=== PATIENT | female | born 1940 | race Two or more races ===

== ENCOUNTER 2023-09-13 20:11 | Inpatient (IN) | payer MEDICARE, MEDICAID ==
[~2023-09-13] VITALS: Ht 157.5 cm; Wt 49.2 kg
[2023-09-13 20:56] LABS: Basophils # (auto) 0 10 ^3/uL (0-0.2); Basophils % (auto) 0.4 % (0.0-2.0); Eosinophils # (auto) 0.4 10 ^3/uL (0-0.8); Eosinophils % (auto) 4.2 % (0.0-7.0); Hematocrit 34.8 % (36.0-46.0); Hemoglobin 11.2 g/dL (12.2-16.2); Lymphocytes # (auto) 1.2 10 ^3/uL (0.4-5.4); Lymphocytes % (auto) 11.8 % (10.0-50.0); Mean Corpuscular Hemoglobin 28.2 pg (28.0-32.0); Mean Corpuscular Hgb Conc. 32.2 g/dL (32.0-36.0); Mean Corpuscular Volume 87.6 fL (80.0-100.0); Monocytes # (auto) 0.6 10 ^3/uL (0-1.3); Neutrophils # (auto) 7.6 10 ^3/uL (1.6-8.6); Neutrophils % (auto) 77.6 % (37.0-80.0); Red Blood Cells 3.98 10^6/uL (4.0-5.20); Red Cell Distribution Width 13.7 % (11.8-14.3); White Blood Cell 9.8 10^3/uL (4.4-10.8)
[2023-09-13 21:12] LABS: Alanine Aminotransferase 32 U/L (7-40); Albumin 4.3 g/dL (3.2-4.8); Alkaline Phosphatase 77 U/L (46-116); Anion Gap 9 (5-15); Aspartate Aminotransferase 37 U/L (13-40); BUN/Creatinine Ratio 17.4 (10.0-20.0); Bilirubin, Total 0.6 mg/dL (0.2-1.0); Blood Urea Nitrogen 12 mg/dL (9-23); Calcium 9.7 mg/dL (8.7-10.4); Carbon Dioxide 24 mmol/L (20-30); Chloride 104 mmol/L (98-107); Glucose 100 mg/dL (74-106); INR 1.03 (0.9-1.15); Partial Thromboplastin Time 28.1 SEC (24.5-34.5); Prothrombin Time 10.9 sec (9.3-11.8); Sodium 137 mmol/L (136-145); Total Protein 7.6 g/dL (5.7-8.2)
[2023-09-13 22:00] VITALS: PULSE 81; RESP 16; O2SAT 99
[2023-09-13] MEDS: ONDANSETRON HCL 4 MG/2 ML VIAL IV ONE (22:08)
[2023-09-13] MEDS: MORPHINE SULFATE 4 MG/ML SYR/VIAL IV ONE (22:09)
[2023-09-13] MEDS: SODIUM CHLORIDE 0.9% 1,000 ML IV ONE ×2 (22:38→22:39)
[2023-09-13] MEDS: IOHEXOL 300 MG/ML 100ML BOTTLE IJ ONE (22:39)
[2023-09-13 23:58] LABS: Urine Bacteria FEW /hpf (None Seen); Urine Blood Negative /uL (Negative); Urine Clarity Clear (Clear); Urine Color Light-Yellow (Yellow); Urine Protein, UAD Negative (Negative); Urine Specific Gravity 1.026 (1.001-1.035); Urine Urobilinogen Normal (Negative); Urine WBC <1 /hpf (0 - 5)
[2023-09-14] VITALS (8 sets, daily range): BP systolic 122–144; BP diastolic 63–75; PULSE 77–100; RESP 18–20; TEMP 97.9–98.9; O2SAT 92–98
[2023-09-14] MEDS: SODIUM CHLORIDE 0.9% 1,000 ML IV SCH (00:30)
[2023-09-14] MEDS: HYDROcodone-ACET 5/325MG TAB PO PRN (01:39)
[2023-09-14] MEDS ORDERED: MORPHINE SULFATE INJ 2 MG/ml SYRG IV PRN (01:45)
[2023-09-14] MEDS ORDERED: NITROGLYCERIN 0.4 MG SL TAB SL PRN (01:45)
[2023-09-14 08:27] LABS: Basophils # (auto) 0 10 ^3/uL (0-0.2); Basophils % (auto) 0.4 % (0.0-2.0); Eosinophils # (auto) 0.4 10 ^3/uL (0-0.8); Eosinophils % (auto) 4.4 % (0.0-7.0); Hematocrit 32.4 % (36.0-46.0); Hemoglobin 10.5 g/dL (12.2-16.2); Lymphocytes # (auto) 1.5 10 ^3/uL (0.4-5.4); Lymphocytes % (auto) 16.3 % (10.0-50.0); Mean Corpuscular Hemoglobin 28.6 pg (28.0-32.0); Mean Corpuscular Hgb Conc. 32.4 g/dL (32.0-36.0); Mean Corpuscular Volume 88.3 fL (80.0-100.0); Monocytes # (auto) 0.7 10 ^3/uL (0-1.3); Monocytes % (auto) 8.1 % (0.0-12.0); Neutrophils # (auto) 6.4 10 ^3/uL (1.6-8.6); Neutrophils % (auto) 70.8 % (37.0-80.0); Red Blood Cells 3.66 10^6/uL (4.0-5.20); Red Cell Distribution Width 13.6 % (11.8-14.3)
[2023-09-14 08:34] LABS: Alanine Aminotransferase 30 U/L (7-40); Albumin 4.1 g/dL (3.2-4.8); Alkaline Phosphatase 76 U/L (46-116); Anion Gap 8 (5-15); Aspartate Aminotransferase 30 U/L (13-40); BUN/Creatinine Ratio 10.7 (10.0-20.0); Blood Urea Nitrogen 8 mg/dL (9-23); Calcium 9.7 mg/dL (8.5-10.1); Carbon Dioxide 23 mmol/L (20-30); Chloride 104 mmol/L (98-107); Glucose 94 mg/dL (74-106); Potassium 3.6 mmol/L (3.5-5.1); Sodium 135 mmol/L (136-145)
[2023-09-14 08:35] LABS: Bilirubin, Total 0.8 mg/dL (0.2-1.0)
[2023-09-14] MEDS ORDERED: MORPHINE SULFATE 4 MG/ML SYR/VIAL IV PRN (08:45)
[2023-09-14] MEDS: MORPHINE SULFATE 4 MG/ML SYR/VIAL IV PRN (21:51)
[2023-09-15] VITALS (8 sets, daily range): BP systolic 140–156; BP diastolic 67–85; PULSE 71–100; RESP 16–18; TEMP 97.9–98.5; O2SAT 93–97
[2023-09-15 05:58] LABS: Basophils # (auto) 0 10 ^3/uL (0-0.2); Basophils % (auto) 0.4 % (0.0-2.0); Eosinophils # (auto) 0.4 10 ^3/uL (0-0.8); Eosinophils % (auto) 4.6 % (0.0-7.0); Hematocrit 31.6 % (36.0-46.0); Hemoglobin 10.4 g/dL (12.2-16.2); Lymphocytes # (auto) 0.7 10 ^3/uL (0.4-5.4); Mean Corpuscular Hemoglobin 29.4 pg (28.0-32.0); Mean Corpuscular Volume 89.2 fL (80.0-100.0); Monocytes # (auto) 0.7 10 ^3/uL (0-1.3); Monocytes % (auto) 8.8 % (0.0-12.0); Neutrophils # (auto) 6.3 10 ^3/uL (1.6-8.6); Neutrophils % (auto) 77.2 % (37.0-80.0); Red Blood Cells 3.54 10^6/uL (4.0-5.20); Red Cell Distribution Width 13.7 % (11.8-14.3); White Blood Cell 8.2 10^3/uL (4.4-10.8)
[2023-09-15 06:16] LABS: Alanine Aminotransferase 27 U/L (7-40); Albumin 3.9 g/dL (3.2-4.8); Anion Gap 8 (5-15); Aspartate Aminotransferase 23 U/L (13-40); BUN/Creatinine Ratio 11.4 (10.0-20.0); Bilirubin, Total 0.6 mg/dL (0.2-1.0); Blood Urea Nitrogen 9 mg/dL (9-23); Calcium 9.8 mg/dL (8.7-10.4); Carbon Dioxide 26 mmol/L (20-30); Chloride 104 mmol/L (98-107); Glucose 109 mg/dL (74-106); Potassium 3.7 mmol/L (3.5-5.1); Sodium 138 mmol/L (136-145)
[2023-09-15 06:50] LABS: Alkaline Phosphatase 76 U/L (46-116)
[2023-09-15] MEDS: hydrALAZINE HCL 20 MG/ML VL IV PRN (06:50)
[2023-09-16] VITALS (9 sets, daily range): BP systolic 135–153; BP diastolic 60–74; PULSE 78–107; RESP 16–20; TEMP 97.7–99.6; O2SAT 93–97
[2023-09-16] MEDS: DOCUSATE SOD 100 MG CAP PO PRN (19:48)
[2023-09-16 21:26] LABS: Erythrocyte Sedimentation Rate 103 mm/hr (0-20)
[2023-09-17] VITALS (8 sets, daily range): BP systolic 124–157; BP diastolic 44–82; PULSE 72–97; RESP 15–22; TEMP 97.8–98.8; O2SAT 94–97
[2023-09-18] VITALS (8 sets, daily range): BP systolic 111–141; BP diastolic 58–72; PULSE 80–102; RESP 16–20; TEMP 97.7–98.8; O2SAT 93–98
[2023-09-18 12:06] LABS: QuantiFERON-TB Gold Plus Negative (Negative)
[2023-09-19] VITALS (8 sets, daily range): BP systolic 107–129; BP diastolic 56–69; PULSE 80–122; RESP 15–18; TEMP 97.7–99.2; O2SAT 93–97
[2023-09-19] MEDS: LACTULOSE 20Gm/30ML SOLN PO ONE (11:30)
[2023-09-19] MEDS ORDERED: VANCOMYCIN PER PHARMACY 0 MG IV SCH (12:45)
[2023-09-19] MEDS: VANCOMYCIN 750mg/150ml 150 ML IV ONE (14:46)
[2023-09-19] MEDS: MIDAZOLAM HCL 2MG/2ML 2ml VIAL (1mg/ml) IV ONE (18:21)
[2023-09-19] MEDS: fentaNYL CITRATE 100 MCG/2 ML VL IV ONE (18:21)
[2023-09-19] MEDS: LIDOCAINE 2%HCL (LOCAL ANESTH.) INJ 10ml MDV ONE (18:22)
[2023-09-19] MEDS: GADOTERATE MEG 10 MMOL/20ml INJ (0.5MMOL/ml) IV ONE (18:22)
[2023-09-20] VITALS (8 sets, daily range): BP systolic 112–130; BP diastolic 51–74; PULSE 98–113; RESP 14–20; TEMP 97.9–98.5; O2SAT 94–99
[2023-09-20] MEDS: cefTRIAXone 1GM/50ML D5W 50 ML IV SCH (10:32)
[2023-09-20] MEDS: FLUCONAZOLE 200MG/100ML 100 ML IV SCH (10:32)
[2023-09-20] MEDS ORDERED: VANCOMYCIN 750mg/150ml 150 ML IV SCH (12:00)
[2023-09-20] MEDS: VANCOMYCIN 750mg/150ml 150 ML IV SCH (15:32)
[2023-09-21] VITALS (7 sets, daily range): BP systolic 111–136; BP diastolic 57–94; PULSE 86–116; RESP 14–18; TEMP 98.3–99.1; O2SAT 94–99
[2023-09-21 18:06] LABS: Coccidioides CF Antibody <1:2 (<1:2)
[2023-09-22] VITALS (8 sets, daily range): BP systolic 112–136; BP diastolic 49–63; PULSE 77–101; RESP 16–19; TEMP 97.5–98.4; O2SAT 90–98
[2023-09-22] MEDS: ONDANSETRON HCL 4 MG/2 ML VIAL IV PRN (08:11)
[2023-09-23] VITALS (8 sets, daily range): BP systolic 113–128; BP diastolic 57–72; PULSE 85–104; RESP 16–19; TEMP 98–98.8; O2SAT 92–96
[2023-09-23] MEDS: LACTULOSE 20Gm/30ML SOLN PO ONE (10:34)
[2023-09-23] MEDS: HYDROcodone-ACET 5/325MG TAB PO PRN (10:34)
[2023-09-23] MEDS: VANCOMYCIN 750mg/150ml 150 ML IV SCH (14:35)
[2023-09-23] MEDS: MORPHINE SULFATE 4 MG/ML SYR/VIAL IV PRN (20:22)
[2023-09-24] VITALS (8 sets, daily range): BP systolic 115–146; BP diastolic 56–84; PULSE 84–100; RESP 16–18; TEMP 97.6–99; O2SAT 92–100
[2023-09-25 01:00] VITALS: BP 116/87; PULSE 89; RESP 18; TEMP 98.9; O2SAT 95
[2023-09-25 05:00] VITALS: BP 133/57; PULSE 81; RESP 18; TEMP 98.9; O2SAT 98
[2023-09-25 08:23] VITALS: RESP 18
[2023-09-25 08:32] LABS: Basophils # (auto) 0.1 10 ^3/uL (0-0.2); Basophils % (auto) 0.7 % (0.0-2.0); Eosinophils # (auto) 0.3 10 ^3/uL (0-0.8); Eosinophils % (auto) 4.1 % (0.0-7.0); Hematocrit 28.6 % (36.0-46.0); Hemoglobin 9.4 g/dL (12.2-16.2); Lymphocytes % (auto) 12.1 % (10.0-50.0); Mean Corpuscular Hemoglobin 28.9 pg (28.0-32.0); Mean Corpuscular Hgb Conc. 32.8 g/dL (32.0-36.0); Monocytes # (auto) 0.8 10 ^3/uL (0-1.3); Neutrophils # (auto) 5.8 10 ^3/uL (1.6-8.6); Neutrophils % (auto) 73.1 % (37.0-80.0); Red Blood Cells 3.25 10^6/uL (4.0-5.20); Red Cell Distribution Width 13.5 % (11.8-14.3); White Blood Cell 7.9 10^3/uL (4.4-10.8)
[2023-09-25 08:51] LABS: Alanine Aminotransferase 12 U/L (7-40); Albumin 3.9 g/dL (3.2-4.8); Alkaline Phosphatase 85 U/L (46-116); Anion Gap 6 (5-15); Aspartate Aminotransferase 9 U/L (13-40); BUN/Creatinine Ratio 17.6 (10.0-20.0); Blood Urea Nitrogen 13 mg/dL (9-23); Calcium 10.1 mg/dL (8.5-10.1); Carbon Dioxide 29 mmol/L (20-30); Chloride 104 mmol/L (98-107); Glucose 102 mg/dL (74-106); Potassium 4.4 mmol/L (3.5-5.1); Sodium 139 mmol/L (136-145)
[2023-09-25 08:52] LABS: Bilirubin, Total 0.4 mg/dL (0.2-1.0); Total Protein 6.6 g/dL (5.7-8.2)
[2023-09-25 09:00] VITALS: BP 140/67; PULSE 89; RESP 16; TEMP 98.1; O2SAT 98
[2023-09-25 13:00] VITALS: BP 141/63; PULSE 90; RESP 16; TEMP 97.8; O2SAT 98
[2023-09-25 17:00] VITALS: BP 132/81; PULSE 90; RESP 14; TEMP 98.5; O2SAT 99
[2023-09-26] VITALS (9 sets, daily range): BP systolic 110–153; BP diastolic 59–70; PULSE 75–93; RESP 16–22; TEMP 97.3–98.8; O2SAT 94–99
[2023-09-26] MEDS: ACETAMINOPHEN 325 MG TAB PO PRN (21:35)
[2023-09-27] VITALS (8 sets, daily range): BP systolic 118–160; BP diastolic 55–72; PULSE 81–96; RESP 16–20; TEMP 97.6–99.7; O2SAT 93–99
[2023-09-28] VITALS (8 sets, daily range): BP systolic 112–153; BP diastolic 54–71; PULSE 87–117; RESP 16–21; TEMP 98–99; O2SAT 93–98
[2023-09-28 07:03] LABS: Potassium 3.8 mmol/L (3.5-5.1)
[2023-09-28 07:04] LABS: Calcium 9.6 mg/dL (8.5-10.1)
[2023-09-28 07:09] LABS: BUN/Creatinine Ratio 17.5 (10.0-20.0)
[2023-09-28 07:11] LABS: Albumin 3.8 g/dL (3.2-4.8); Phosphorus 3.8 mg/dL (2.4-5.1)
[2023-09-28] MEDS ORDERED: FLUC150T38 PO (09:33)
[2023-09-28] MEDS ORDERED: DOXY-346 PO (09:33)
[2023-09-29] VITALS (7 sets, daily range): BP systolic 110–150; BP diastolic 58–72; PULSE 96–109; RESP 16–19; TEMP 98.1–99.5; O2SAT 91–95
[2023-09-29] MEDS: OXYCODONE W/ ACETAMINOPHEN 5/325MG TABLET PO PRN (15:03)
[2023-09-30] VITALS (8 sets, daily range): BP systolic 114–154; BP diastolic 50–76; PULSE 91–117; RESP 16–19; TEMP 97.5–100; O2SAT 93–99
[2023-09-30 00:08] LABS: COVID19 ANTIGEN SOFIA FIA NEGATIVE (NEGATIVE)
[2023-09-30] MEDS: traMADol HCL 50 MG TAB PO PRN (16:11)
[2023-10-01 01:19] VITALS: BP 114/60; PULSE 102; RESP 17; TEMP 98.9; O2SAT 96
[2023-10-01 05:32] VITALS: BP 123/68; PULSE 91; RESP 17; TEMP 97.6; O2SAT 92
[2023-10-01 08:30] VITALS: RESP 19; O2SAT 95
[2023-10-01 09:03] VITALS: BP 150/61; PULSE 99; RESP 16; TEMP 98.3; O2SAT 97
== END 2023-10-01 11:00 | DRG 120 ==
LOC: EEVIPCON 20:11 → ER 20:11 → TELE 09-14 01:47 → TELE-WESTW 09-14 03:18 → WEST WING 09-24 09:00
PROVIDERS: ADMIT Nurse Practitioner Family; ATTEND Family Medicine
PROC: 0BDD4ZX Extraction of Right Middle Lung Lobe, Percutaneous Endoscopic Approach, Diagnostic (ICD-10-PCS; principal; 2023-09-19)
PROC: 0S9B3ZX Drainage of Left Hip Joint, Percutaneous Approach, Diagnostic (ICD-10-PCS; 2023-09-20)
PROC: 0S9B3ZX Drainage of Left Hip Joint, Percutaneous Approach, Diagnostic (ICD-10-PCS; 2023-09-27)
PROC: 05HA33Z Insertion of Infusion Device into Left Brachial Vein, Percutaneous Approach (ICD-10-PCS; 2023-09-27)
PROC: B54NZZA Ultrasonography of Left Upper Extremity Veins, Guidance (ICD-10-PCS; 2023-09-27)
DX: R91.8 Other nonspecific abnormal finding of lung field (principal); M86.8X5 Other osteomyelitis, thigh; J93.9 Pneumothorax, unspecified; L02.416 Cutaneous abscess of left lower limb; I10 Essential (primary) hypertension; J98.11 Atelectasis; E78.00 Pure hypercholesterolemia, unspecified; G89.4 Chronic pain syndrome; Z20.822 Contact with and (suspected) exposure to COVID-19; R59.0 Localized enlarged lymph nodes; J98.4 Other disorders of lung; M54.16 Radiculopathy, lumbar region; Z90.710 Acquired absence of both cervix and uterus; Z82.3 Family history of stroke; Z90.49 Acquired absence of other specified parts of digestive tract; Z80.51 Family history of malignant neoplasm of kidney
CPT/HCPCS: 10005; 36415; 71045; 71250; 71260; 72148; 73723; 74177; 76942; 77012; 78306; 80053; 80069; 80202; 81001; 82565; 83880; 84484; 85025; 85610; 85652; 85730; 86141; 86635; 87040; 87205; 87426; 93926; 96361; 96365; 96375; 97110; 97116; 97163; 97530; C1729; G0378; J1450; J2001; J2250; J2405

== ENCOUNTER 2023-10-06 10:45 | Inpatient (IN) | payer MEDICARE, MEDICAID ==
[~2023-10-06] VITALS: Ht 154.9 cm; Wt 50.1 kg
[~2023-10-06 10:45] MED LIST: DOXY-346 PO; FLUC150T38 PO
[2023-10-06] MEDS ORDERED: SODIUM CHLORIDE 0.9% 1,000 ML IV ONE (11:00)
[2023-10-06] MEDS: METOCLOPRAMIDE HCL 5MG/ml INJ 2ml VIAL IV ONE (11:25)
[2023-10-06 11:41] LABS: Basophils # (auto) 0.1 10 ^3/uL (0-0.2); Basophils % (auto) 0.5 % (0.0-2.0); Eosinophils # (auto) 0.4 10 ^3/uL (0-0.8); Eosinophils % (auto) 2.9 % (0.0-7.0); Hematocrit 26.6 % (36.0-46.0); Hemoglobin 8.7 g/dL (12.2-16.2); Lymphocytes # (auto) 0.5 10 ^3/uL (0.4-5.4); Lymphocytes % (auto) 4.3 % (10.0-50.0); Mean Corpuscular Hemoglobin 28.8 pg (28.0-32.0); Mean Corpuscular Hgb Conc. 32.7 g/dL (32.0-36.0); Monocytes # (auto) 0.6 10 ^3/uL (0-1.3); Monocytes % (auto) 4.6 % (0.0-12.0); Neutrophils # (auto) 10.8 10 ^3/uL (1.6-8.6); Neutrophils % (auto) 87.7 % (37.0-80.0); Red Blood Cells 3.02 10^6/uL (4.0-5.20); Red Cell Distribution Width 13.7 % (11.8-14.3); White Blood Cell 12.4 10^3/uL (4.4-10.8)
[2023-10-06 11:56] LABS: Alanine Aminotransferase 33 U/L (7-40); Albumin 3.7 g/dL (3.2-4.8); Alkaline Phosphatase 89 U/L (46-116); Anion Gap 7 (5-15); Aspartate Aminotransferase 22 U/L (13-40); Bilirubin, Total 0.3 mg/dL (0.2-1.0); Calcium 9.2 mg/dL (8.5-10.1); Carbon Dioxide 26 mmol/L (20-30); Chloride 108 mmol/L (98-107); Glucose 124 mg/dL (74-106); Potassium 2.9 mmol/L (3.5-5.1); Sodium 141 mmol/L (136-145); Total Protein 6.3 g/dL (5.7-8.2)
[2023-10-06 11:57] LABS: INR 1.08 (0.9-1.15); Partial Thromboplastin Time 28.3 SEC (24.5-34.5); Prothrombin Time 11.4 sec (9.3-11.8)
[2023-10-06 12:07] LABS: BUN/Creatinine Ratio 8.9 (10.0-20.0); Blood Urea Nitrogen < 5 mg/dL (9-23)
[2023-10-06 12:09] LABS: Lactic Acid w/Reflex 2.3 mmol/L (0.4-2.0)
[2023-10-06] MEDS: SODIUM CHLORIDE 0.9% 1,000 ML IV ONE (12:22)
[2023-10-06] MEDS: ENOXAPARIN SOD 40 MG/0.4 ML SYRINGE SC SCH (14:45)
[2023-10-06] MEDS ORDERED: DOCUSATE SOD 100 MG CAP PO PRN (14:45)
[2023-10-06] MEDS ORDERED: SODIUM CHLORIDE 0.9% 1,000 ML IV SCH (14:45)
[2023-10-06] MEDS: PANTOPRAZOLE 40 MG/10 ML VIAL INJ IV ONE (15:45)
[2023-10-06] MEDS: POTASSIUM CHL 20MEQ/100ML 100 ML IV SCH (15:45)
[2023-10-06] MEDS: SODIUM CHLORIDE 0.9% 1,000 ML IV SCH (15:45)
[2023-10-06 16:26] LABS: Magnesium 1.9 mg/dL (1.6-2.6)
[2023-10-06 16:28] LABS: Phosphorus 2.8 mg/dL (2.4-5.1)
[2023-10-06 19:30] VITALS: PULSE 92; RESP 27; O2SAT 94
[2023-10-07] MEDS: POTASSIUM CHL 20MEQ/100ML 100 ML IV ONE ×2 (00:08→15:57)
[2023-10-07] MEDS ORDERED: MORPHINE SULFATE INJ 2 MG/ml SYRG IV PRN (01:00)
[2023-10-07] MEDS ORDERED: NITROGLYCERIN 0.4 MG SL TAB SL PRN (01:00)
[2023-10-07] MEDS: MORPHINE SULFATE INJ 2 MG/ml SYRG IV PRN (01:23)
[2023-10-07] MEDS: hydrALAZINE HCL 20 MG/ML VL IV PRN (05:02)
[2023-10-07 06:45] LABS: Albumin 3.7 g/dL (3.2-4.8); Alkaline Phosphatase 92 U/L (46-116); Anion Gap 10 (5-15); Aspartate Aminotransferase 15 U/L (13-40); BUN/Creatinine Ratio 9.6 (10.0-20.0); Basophils # (auto) 0.1 10 ^3/uL (0-0.2); Basophils % (auto) 0.5 % (0.0-2.0); Blood Urea Nitrogen 5 mg/dL (9-23); Calcium 9.5 mg/dL (8.7-10.4); Carbon Dioxide 25 mmol/L (20-30); Chloride 104 mmol/L (98-107); Eosinophils # (auto) 0.5 10 ^3/uL (0-0.8); Glucose 90 mg/dL (74-106); Hematocrit 29.4 % (36.0-46.0); Hemoglobin 9.6 g/dL (12.2-16.2); Lymphocytes # (auto) 0.9 10 ^3/uL (0.4-5.4); Lymphocytes % (auto) 6.6 % (10.0-50.0); Mean Corpuscular Hemoglobin 28.7 pg (28.0-32.0); Mean Corpuscular Hgb Conc. 32.7 g/dL (32.0-36.0); Mean Corpuscular Volume 87.9 fL (80.0-100.0); Neutrophils # (auto) 11.2 10 ^3/uL (1.6-8.6); Neutrophils % (auto) 81.9 % (37.0-80.0); Potassium 3.5 mmol/L (3.5-5.1); Red Blood Cells 3.35 10^6/uL (4.0-5.20); Red Cell Distribution Width 13.7 % (11.8-14.3); Sodium 139 mmol/L (136-145); White Blood Cell 13.7 10^3/uL (4.4-10.8)
[2023-10-07 06:46] LABS: Bilirubin, Total 0.5 mg/dL (0.2-1.0); Total Protein 6.5 g/dL (5.7-8.2)
[2023-10-07] MEDS: ONDANSETRON HCL 4 MG/2 ML VIAL IV PRN ×2 (06:49→21:39)
[2023-10-07 07:22] LABS: Alanine Aminotransferase 25 U/L (7-40)
[2023-10-07 07:49] LABS: Urine Bacteria None Seen /hpf (None Seen)
[2023-10-07 07:58] LABS: Urine Blood Negative /uL (Negative); Urine Clarity Clear (Clear); Urine Color Colorless (Yellow); Urine Protein, UAD Negative (Negative); Urine Urobilinogen Normal (Negative); Urine WBC 4 /hpf (0 - 5)
[2023-10-07 08:41] VITALS: PULSE 100; RESP 15; O2SAT 94
[2023-10-07] MEDS: cefTRIAXone 1GM/50ML D5W 50 ML IV SCH (09:38)
[2023-10-07] MEDS: ACETAMINOPHEN 325 MG TAB PO PRN (10:36)
[2023-10-07] MEDS: FLUCONAZOLE 200MG/100ML 100 ML IV SCH (10:37)
[2023-10-07] MEDS: PANTOPRAZOLE 40 MG/10 ML VIAL INJ IV SCH (10:37)
[2023-10-07] MEDS: dilTIAZem 25 MG/5 ML VIAL IV ONE (11:32)
[2023-10-07] MEDS: LORazepam 2MG/ML-1ML VIAL IV ONE (11:40)
[2023-10-07 12:16] LABS: Potassium 3.6 mmol/L (3.5-5.1)
[2023-10-07 12:23] LABS: Magnesium 1.7 mg/dL (1.6-2.6)
[2023-10-07] MEDS: AMIODARONE BOLUS KIT 100 ML IV ONE (12:26)
[2023-10-07] MEDS: METOPROLOL TARTRATE 25 MG TAB PO ONE (12:45)
[2023-10-07] MEDS: AMIODARONE 450mg/250ml AE 250 ML IV SCH ×2 (13:26→21:36)
[2023-10-07] MEDS: MAGNESIUM SULFATE 1GM/100ML 100 ML IV ONE (14:22)
[2023-10-07 18:50] VITALS: BP 135/81; PULSE 84; RESP 16; TEMP 98.2; O2SAT 96
[2023-10-07 20:27] VITALS: BP 154/67; PULSE 81; RESP 19; TEMP 98.7; O2SAT 97
[2023-10-07] MEDS: AMIODARONE 450mg/250ml AE 250 ML IV ONE (21:15)
[2023-10-07] MEDS: METOPROLOL TARTRATE 25 MG TAB PO SCH (21:18)
[2023-10-07] MEDS: ATORVASTATIN 20 MG TAB PO SCH (21:19)
[2023-10-07] MEDS: ENOXAPARIN SOD 100 MG/1 ML SYRINGE SC SCH (21:57)
[2023-10-08] VITALS (8 sets, daily range): BP systolic 136–160; BP diastolic 62–80; PULSE 77–94; RESP 17–18; TEMP 97.9–98.4; O2SAT 91–95
[2023-10-08 09:31] LABS: Basophils # (auto) 0.1 10 ^3/uL (0-0.2); Basophils % (auto) 0.3 % (0.0-2.0); Eosinophils # (auto) 0.7 10 ^3/uL (0-0.8); Eosinophils % (auto) 3.8 % (0.0-7.0); Hemoglobin 10.1 g/dL (12.2-16.2); Lymphocytes # (auto) 0.7 10 ^3/uL (0.4-5.4); Mean Corpuscular Hemoglobin 28.5 pg (28.0-32.0); Mean Corpuscular Hgb Conc. 32.7 g/dL (32.0-36.0); Mean Corpuscular Volume 87.2 fL (80.0-100.0); Monocytes # (auto) 1.1 10 ^3/uL (0-1.3); Monocytes % (auto) 5.9 % (0.0-12.0); Neutrophils # (auto) 15.4 10 ^3/uL (1.6-8.6); Nucleated Red Blood Cells % 0.1 %; Red Blood Cells 3.55 10^6/uL (4.0-5.20); Red Cell Distribution Width 14.1 % (11.8-14.3); White Blood Cell 17.9 10^3/uL (4.4-10.8)
[2023-10-08 09:58] LABS: Chloride 102 mmol/L (98-107); Potassium 3.3 mmol/L (3.5-5.1); Sodium 135 mmol/L (136-145)
[2023-10-08 09:59] LABS: Anion Gap 9 (5-15); Calcium 9.6 mg/dL (8.5-10.1); Carbon Dioxide 24 mmol/L (20-30)
[2023-10-08 10:04] LABS: BUN/Creatinine Ratio 13.8 (10.0-20.0); Blood Urea Nitrogen 9 mg/dL (9-23); Glucose 125 mg/dL (74-106)
[2023-10-08] MEDS ORDERED: METOCLOPRAMIDE HCL 10 MG TAB PO PRN (14:15)
[2023-10-09] VITALS (15 sets, daily range): BP systolic 149–165; BP diastolic 79–90; PULSE 74–109; RESP 17–24; TEMP 97.7–98.1; O2SAT 93–99
[2023-10-09 11:15] LABS: Basophils # (auto) 0 10 ^3/uL (0-0.2); Basophils % (auto) 0.2 % (0.0-2.0); Eosinophils # (auto) 0.5 10 ^3/uL (0-0.8); Eosinophils % (auto) 2.2 % (0.0-7.0); Hematocrit 29.1 % (36.0-46.0); Hemoglobin 9.7 g/dL (12.2-16.2); Lymphocytes # (auto) 0.5 10 ^3/uL (0.4-5.4); Lymphocytes % (auto) 2.6 % (10.0-50.0); Mean Corpuscular Hemoglobin 29.1 pg (28.0-32.0); Mean Corpuscular Hgb Conc. 33.3 g/dL (32.0-36.0); Mean Corpuscular Volume 87.4 fL (80.0-100.0); Monocytes # (auto) 1.4 10 ^3/uL (0-1.3); Monocytes % (auto) 6.8 % (0.0-12.0); Neutrophils # (auto) 18.5 10 ^3/uL (1.6-8.6); Neutrophils % (auto) 88.2 % (37.0-80.0); Red Blood Cells 3.33 10^6/uL (4.0-5.20); Red Cell Distribution Width 14.3 % (11.8-14.3)
[2023-10-09 11:25] LABS: Chloride 105 mmol/L (98-107); Potassium 2.8 mmol/L (3.5-5.1); Sodium 136 mmol/L (136-145)
[2023-10-09 11:26] LABS: Anion Gap 9 (5-15); Carbon Dioxide 22 mmol/L (20-30)
[2023-10-09 11:27] LABS: Calcium 8.8 mg/dL (8.5-10.1)
[2023-10-09 11:32] LABS: BUN/Creatinine Ratio 19.1 (10.0-20.0); Blood Urea Nitrogen 9 mg/dL (9-23); Glucose 133 mg/dL (74-106)
[2023-10-09] MEDS: FLECAINIDE ACETATE 50 MG TAB PO ONE (11:53)
[2023-10-09] MEDS: POTASSIUM CHL 20MEQ/100ML 100 ML IV SCH (16:06)
[2023-10-09] MEDS: ALBUTEROL SULF 2.5 MG/0.5ML(0.5%) NEB SOLN ONE (16:42)
[2023-10-09] MEDS: ALBUTEROL SULF 2.5 MG/0.5ML(0.5%) NEB SOLN NEB ONE (16:45)
[2023-10-09] MEDS: methylPREDNISolone SOD SUCC 40 MG/ML VL IV SCH (18:15)
[2023-10-09] MEDS: ALBUTEROL SULF 2.5 MG/0.5ML(0.5%) NEB SOLN NEB SCH (18:41)
[2023-10-09] MEDS: FLECAINIDE ACETATE 50 MG TAB PO SCH (21:42)
[2023-10-10] VITALS (19 sets, daily range): BP systolic 112–168; BP diastolic 68–93; PULSE 88–105; RESP 16–22; TEMP 97.5–98.3; O2SAT 92–100
[2023-10-10 10:38] LABS: Hemoglobin 9.5 g/dL (12.2-16.2)
[2023-10-10 10:42] LABS: Hematocrit 29.8 % (36.0-46.0); Mean Corpuscular Hemoglobin 28.5 pg (28.0-32.0); Mean Corpuscular Hgb Conc. 31.9 g/dL (32.0-36.0); Mean Corpuscular Volume 89.4 fL (80.0-100.0); Red Blood Cells 3.33 10^6/uL (4.0-5.20); Red Cell Distribution Width 14.6 % (11.8-14.3); White Blood Cell 20.6 10^3/uL (4.4-10.8)
[2023-10-10 10:53] LABS: Basophils % (manual) 0 (0.0-2.0); Blast Cells 0; Eosinophils % (manual) 0 (0-7); Metamyelocytes % 0; Myelocytes % 0; Promyelocytes % 0; Reactive Lymphocytes 0
[2023-10-10 10:59] LABS: Chloride 108 mmol/L (98-107); Potassium 3.7 mmol/L (3.5-5.1); Sodium 137 mmol/L (136-145)
[2023-10-10 11:00] LABS: Anion Gap 6 (5-15); Carbon Dioxide 23 mmol/L (20-30)
[2023-10-10 11:01] LABS: Calcium 9.4 mg/dL (8.5-10.1)
[2023-10-10 11:05] LABS: BUN/Creatinine Ratio 22.8 (10.0-20.0); Blood Urea Nitrogen 13 mg/dL (9-23); Glucose 157 mg/dL (74-106)
[2023-10-10 11:28] LABS: Band Neutrophils % (manual) 3; Lymphocytes % (manual) 5 (10.0-50.0); Monocytes % (manual) 2 (0-12); Platelet Estimate Adequate
[2023-10-11] VITALS (20 sets, daily range): BP systolic 140–157; BP diastolic 70–92; PULSE 90–118; RESP 16–24; TEMP 97.7–98.4; O2SAT 94–100
[2023-10-11] MEDS: FUROSEMIDE 20 MG/2 ML VIAL IV ONE (11:12)
[2023-10-11] MEDS: PIPERACILLIN-TAZOB 3.375GM 100 ML IV ONE (15:55)
[2023-10-11] MEDS: PIPERACILLIN-TAZOB 3.375GM 100 ML IV SCH (18:08)
[2023-10-12] VITALS (22 sets, daily range): BP systolic 140–169; BP diastolic 65–84; PULSE 86–102; RESP 12–20; TEMP 97.6–98.4; O2SAT 91–99
[2023-10-12] MEDS: FUROSEMIDE 20 MG/2 ML VIAL IV SCH (10:04)
[2023-10-12] MEDS: cloNIDine HCL 0.1 MG TAB PO ONE (16:57)
[2023-10-13] VITALS (16 sets, daily range): BP systolic 136–159; BP diastolic 65–73; PULSE 75–102; RESP 12–20; TEMP 97.7–99.9; O2SAT 87–100
[2023-10-13 05:43] LABS: Basophils # (auto) 0 10 ^3/uL (0-0.2); Basophils % (auto) 0.1 % (0.0-2.0); Eosinophils # (auto) 1.7 10 ^3/uL (0-0.8); Eosinophils % (auto) 9.4 % (0.0-7.0); Hematocrit 27.5 % (36.0-46.0); Hemoglobin 8.9 g/dL (12.2-16.2); Lymphocytes # (auto) 0.9 10 ^3/uL (0.4-5.4); Lymphocytes % (auto) 4.8 % (10.0-50.0); Mean Corpuscular Hemoglobin 28.1 pg (28.0-32.0); Mean Corpuscular Hgb Conc. 32.3 g/dL (32.0-36.0); Mean Corpuscular Volume 86.9 fL (80.0-100.0); Monocytes # (auto) 1.5 10 ^3/uL (0-1.3); Monocytes % (auto) 8.2 % (0.0-12.0); Neutrophils % (auto) 77.5 % (37.0-80.0); Red Blood Cells 3.16 10^6/uL (4.0-5.20); White Blood Cell 18.1 10^3/uL (4.4-10.8)
[2023-10-13 05:53] LABS: Chloride 104 mmol/L (98-107); Potassium 2.9 mmol/L (3.5-5.1); Sodium 139 mmol/L (136-145)
[2023-10-13 05:54] LABS: Anion Gap 7 (5-15); Calcium 8.9 mg/dL (8.7-10.4); Carbon Dioxide 28 mmol/L (20-30)
[2023-10-13 05:59] LABS: BUN/Creatinine Ratio 22.4 (10.0-20.0); Blood Urea Nitrogen 13 mg/dL (9-23); Glucose 99 mg/dL (74-106)
[2023-10-13] MEDS: POTASSIUM EFFERVESENT TAB 25 MEQ PO ONE (10:53)
[2023-10-13] MEDS: LACTULOSE 20Gm/30ML SOLN PO ONE (10:55)
[2023-10-13] MEDS: POTASSIUM EFFERVESENT TAB 25 MEQ PO SCH (17:34)
[2023-10-14] VITALS (20 sets, daily range): BP systolic 137–170; BP diastolic 60–78; PULSE 80–102; RESP 14–20; TEMP 98–99.9; O2SAT 86–100
[2023-10-14 06:34] LABS: Basophils # (auto) 0.1 10 ^3/uL (0-0.2); Basophils % (auto) 0.4 % (0.0-2.0); Eosinophils # (auto) 1.4 10 ^3/uL (0-0.8); Eosinophils % (auto) 7.7 % (0.0-7.0); Hematocrit 28.1 % (36.0-46.0); Hemoglobin 9.2 g/dL (12.2-16.2); Lymphocytes # (auto) 0.9 10 ^3/uL (0.4-5.4); Lymphocytes % (auto) 4.8 % (10.0-50.0); Mean Corpuscular Hemoglobin 28.6 pg (28.0-32.0); Mean Corpuscular Hgb Conc. 32.8 g/dL (32.0-36.0); Monocytes # (auto) 1.5 10 ^3/uL (0-1.3); Monocytes % (auto) 8.2 % (0.0-12.0); Neutrophils # (auto) 14.8 10 ^3/uL (1.6-8.6); Neutrophils % (auto) 78.9 % (37.0-80.0); Red Blood Cells 3.23 10^6/uL (4.0-5.20); Red Cell Distribution Width 14.7 % (11.8-14.3); White Blood Cell 18.8 10^3/uL (4.4-10.8)
[2023-10-14 06:47] LABS: Anion Gap 5 (5-15); Carbon Dioxide 30 mmol/L (20-30); Chloride 101 mmol/L (98-107); Potassium 2.9 mmol/L (3.5-5.1); Sodium 136 mmol/L (136-145)
[2023-10-14 06:48] LABS: Calcium 8.9 mg/dL (8.5-10.1)
[2023-10-14 06:53] LABS: BUN/Creatinine Ratio 19.6 (10.0-20.0); Blood Urea Nitrogen 10 mg/dL (9-23); Glucose 111 mg/dL (74-106)
[2023-10-15] VITALS (18 sets, daily range): BP systolic 120–163; BP diastolic 55–73; PULSE 80–92; RESP 16–18; TEMP 98.2–98.8; O2SAT 88–100
[2023-10-15 06:39] LABS: Basophils # (auto) 0.1 10 ^3/uL (0-0.2); Basophils % (auto) 0.3 % (0.0-2.0); Eosinophils # (auto) 1.2 10 ^3/uL (0-0.8); Eosinophils % (auto) 6.3 % (0.0-7.0); Hematocrit 27.7 % (36.0-46.0); Hemoglobin 8.9 g/dL (12.2-16.2); Lymphocytes # (auto) 0.9 10 ^3/uL (0.4-5.4); Lymphocytes % (auto) 4.7 % (10.0-50.0); Mean Corpuscular Hemoglobin 28.2 pg (28.0-32.0); Mean Corpuscular Volume 87.9 fL (80.0-100.0); Monocytes # (auto) 1.9 10 ^3/uL (0-1.3); Monocytes % (auto) 9.7 % (0.0-12.0); Neutrophils # (auto) 15.3 10 ^3/uL (1.6-8.6); Red Blood Cells 3.15 10^6/uL (4.0-5.20); Red Cell Distribution Width 14.9 % (11.8-14.3); White Blood Cell 19.3 10^3/uL (4.4-10.8)
[2023-10-15 06:45] LABS: Anion Gap 7 (5-15); Carbon Dioxide 29 mmol/L (20-30); Chloride 100 mmol/L (98-107); Potassium 3.1 mmol/L (3.5-5.1); Sodium 136 mmol/L (136-145)
[2023-10-15 06:51] LABS: BUN/Creatinine Ratio 23.2 (10.0-20.0); Blood Urea Nitrogen 13 mg/dL (9-23); Glucose 101 mg/dL (74-106)
[2023-10-16] VITALS (17 sets, daily range): BP systolic 126–165; BP diastolic 59–80; PULSE 78–115; RESP 16–26; TEMP 97.8–99.2; O2SAT 83–100
[2023-10-16 06:01] LABS: Basophils # (auto) 0.1 10 ^3/uL (0-0.2); Basophils % (auto) 0.5 % (0.0-2.0); Eosinophils # (auto) 1.5 10 ^3/uL (0-0.8); Hematocrit 27.4 % (36.0-46.0); Hemoglobin 8.9 g/dL (12.2-16.2); Lymphocytes # (auto) 0.7 10 ^3/uL (0.4-5.4); Lymphocytes % (auto) 4.1 % (10.0-50.0); Mean Corpuscular Hemoglobin 28.7 pg (28.0-32.0); Mean Corpuscular Hgb Conc. 32.7 g/dL (32.0-36.0); Mean Corpuscular Volume 87.8 fL (80.0-100.0); Monocytes # (auto) 1.5 10 ^3/uL (0-1.3); Monocytes % (auto) 9.5 % (0.0-12.0); Neutrophils # (auto) 12.4 10 ^3/uL (1.6-8.6); Neutrophils % (auto) 76.9 % (37.0-80.0); Red Blood Cells 3.12 10^6/uL (4.0-5.20); White Blood Cell 16.2 10^3/uL (4.4-10.8)
[2023-10-16 06:08] LABS: Anion Gap 5 (5-15); Carbon Dioxide 31 mmol/L (20-30); Chloride 98 mmol/L (98-107); Potassium 3.1 mmol/L (3.5-5.1); Sodium 134 mmol/L (136-145)
[2023-10-16 06:14] LABS: Blood Urea Nitrogen 13 mg/dL (9-23); Glucose 115 mg/dL (74-106)
[2023-10-16] MEDS: POTASSIUM EFFERVESENT TAB 25 MEQ PO SCH (12:38)
[2023-10-16] MEDS ORDERED: TEMAZEPAM 15 MG CAP PO ONE (23:00)
[2023-10-17] VITALS (14 sets, daily range): BP systolic 129–164; BP diastolic 61–89; PULSE 76–93; RESP 14–20; TEMP 97.3–99.7; O2SAT 94–100
[2023-10-17 11:32] LABS: Basophils # (auto) 0.2 10 ^3/uL (0-0.2); Eosinophils # (auto) 1.3 10 ^3/uL (0-0.8); Eosinophils % (auto) 7.2 % (0.0-7.0); Hematocrit 30.4 % (36.0-46.0); Hemoglobin 9.5 g/dL (12.2-16.2); Lymphocytes # (auto) 0.7 10 ^3/uL (0.4-5.4); Lymphocytes % (auto) 4.1 % (10.0-50.0); Mean Corpuscular Hgb Conc. 31.2 g/dL (32.0-36.0); Mean Corpuscular Volume 89.9 fL (80.0-100.0); Monocytes # (auto) 1.4 10 ^3/uL (0-1.3); Monocytes % (auto) 8.1 % (0.0-12.0); Neutrophils # (auto) 14.2 10 ^3/uL (1.6-8.6); Neutrophils % (auto) 79.6 % (37.0-80.0); Red Blood Cells 3.38 10^6/uL (4.0-5.20); Red Cell Distribution Width 15.5 % (11.8-14.3); White Blood Cell 17.9 10^3/uL (4.4-10.8)
[2023-10-17 11:42] LABS: Alanine Aminotransferase 12 U/L (7-40); Albumin 3.6 g/dL (3.2-4.8); Alkaline Phosphatase 92 U/L (46-116); Anion Gap 5 (5-15); Aspartate Aminotransferase 9 U/L (13-40); BUN/Creatinine Ratio 16.1 (10.0-20.0); Blood Urea Nitrogen 9 mg/dL (9-23); Calcium 9.1 mg/dL (8.5-10.1); Carbon Dioxide 30 mmol/L (20-30); Chloride 100 mmol/L (98-107); Glucose 102 mg/dL (74-106); Potassium 3.5 mmol/L (3.5-5.1); Sodium 135 mmol/L (136-145)
[2023-10-17 11:43] LABS: Bilirubin, Total 0.5 mg/dL (0.2-1.0); Total Protein 5.8 g/dL (5.7-8.2)
[2023-10-17] MEDS: AMIODARONE BOLUS KIT 100 ML IV ONE (13:12)
[2023-10-17] MEDS: AMIODARONE 450mg/250ml AE 250 ML IV SCH ×2 (13:24→18:45)
[2023-10-17] MEDS: MAGNESIUM SULFATE 1GM/100ML 100 ML IV ONE (13:25)
[2023-10-17] MEDS: POTASSIUM CHLORIDE 40 MEQ, LIDOCAINE 1% (LOCAL ANESTH.) 4 ML in SODIUM CHL 0.9% 250 ML IV ONE (14:25)
[2023-10-17] MEDS: ENOXAPARIN SOD 60 MG/0.6 ML SYRINGE SC SCH (21:54)
[2023-10-18] VITALS (17 sets, daily range): BP systolic 139–173; BP diastolic 63–83; PULSE 76–86; RESP 14–20; TEMP 96.7–98.7; O2SAT 91–100
[2023-10-18 06:36] LABS: Basophils # (auto) 0.1 10 ^3/uL (0-0.2); Basophils % (auto) 0.4 % (0.0-2.0); Eosinophils % (auto) 6.6 % (0.0-7.0); Hemoglobin 9.1 g/dL (12.2-16.2); Lymphocytes # (auto) 0.5 10 ^3/uL (0.4-5.4); Lymphocytes % (auto) 3.1 % (10.0-50.0); Mean Corpuscular Hemoglobin 29.1 pg (28.0-32.0); Mean Corpuscular Hgb Conc. 32.7 g/dL (32.0-36.0); Monocytes # (auto) 1.1 10 ^3/uL (0-1.3); Monocytes % (auto) 6.9 % (0.0-12.0); Neutrophils # (auto) 12.9 10 ^3/uL (1.6-8.6); Red Blood Cells 3.14 10^6/uL (4.0-5.20); Red Cell Distribution Width 15.5 % (11.8-14.3); White Blood Cell 15.6 10^3/uL (4.4-10.8)
[2023-10-18 06:47] LABS: Alanine Aminotransferase 19 U/L (7-40); Alkaline Phosphatase 97 U/L (46-116); Calcium 8.9 mg/dL (8.5-10.1); Carbon Dioxide 26 mmol/L (20-30); Chloride 99 mmol/L (98-107); Glucose 139 mg/dL (74-106); Potassium 3.7 mmol/L (3.5-5.1); Sodium 133 mmol/L (136-145)
[2023-10-18 06:48] LABS: Albumin 3.5 g/dL (3.2-4.8); Anion Gap 8 (5-15); Aspartate Aminotransferase 36 U/L (13-40); BUN/Creatinine Ratio 22.2 (10.0-20.0); Bilirubin, Total 0.5 mg/dL (0.2-1.0); Blood Urea Nitrogen 16 mg/dL (9-23); Total Protein 5.7 g/dL (5.7-8.2)
[2023-10-18] MEDS: AMIODARONE HCL 200 MG TAB PO SCH (22:22)
[2023-10-18] MEDS: METOPROLOL TARTRATE 25 MG TAB PO SCH (22:25)
[2023-10-19] VITALS (17 sets, daily range): BP systolic 129–165; BP diastolic 49–74; PULSE 70–87; RESP 14–18; TEMP 97.8–98.9; O2SAT 82–100
[2023-10-19] MEDS ORDERED: AMIO200T33 PO (10:17)
[2023-10-19] MEDS ORDERED: POTA-180 PO (10:17)
[2023-10-19] MEDS ORDERED: ALBUAER3 IN (10:17)
[2023-10-19] MEDS ORDERED: METO25TA5 PO (10:17)
[2023-10-19] MEDS ORDERED: PANT40T PO (10:17)
[2023-10-19] MEDS ORDERED: ZOFR4T PO (10:17)
[2023-10-19 14:23] LABS: Base Excess 4.2 mmol/L (-2.0-2.0)
== END 2023-10-19 20:00 | disposition home health service (06) | DRG 720 ==
LOC: ER 10:45 → EDBD 10:45 → EDUNIT# 10:45 → TELE 10-07 00:52 → TELE-EAST 10-07 18:43
PROVIDERS: ADMIT Nurse Practitioner Family; ATTEND Family Medicine
PROC: 05HB33Z Insertion of Infusion Device into Right Basilic Vein, Percutaneous Approach (ICD-10-PCS; 2023-10-08)
PROC: B54MZZA Ultrasonography of Right Upper Extremity Veins, Guidance (ICD-10-PCS; 2023-10-08)
PROC: 5A09357 Assistance with Respiratory Ventilation, Less than 24 Consecutive Hours, Continuous Positive Airway Pressure (ICD-10-PCS; principal; 2023-10-11)
DX: A41.9 Sepsis, unspecified organism (principal); J96.01 Acute respiratory failure with hypoxia; J16.8 Pneumonia due to other specified infectious organisms; I47.20 Ventricular tachycardia, unspecified; J90 Pleural effusion, not elsewhere classified; M84.454A Pathological fracture, pelvis, initial encounter for fracture; R62.7 Adult failure to thrive; B48.8 Other specified mycoses; J81.1 Chronic pulmonary edema; E86.0 Dehydration; D64.9 Anemia, unspecified; E87.5 Hyperkalemia; F41.9 Anxiety disorder, unspecified; I10 Essential (primary) hypertension; M16.12 Unilateral primary osteoarthritis, left hip; E87.6 Hypokalemia; I48.91 Unspecified atrial fibrillation; R59.1 Generalized enlarged lymph nodes; G89.4 Chronic pain syndrome; E78.00 Pure hypercholesterolemia, unspecified; Z90.49 Acquired absence of other specified parts of digestive tract; Z82.3 Family history of stroke; Z90.710 Acquired absence of both cervix and uterus; Z99.81 Dependence on supplemental oxygen; Z68.20 Body mass index [BMI] 20.0-20.9, adult
CPT/HCPCS: 36415; 36600; 71045; 71250; 73502; 74176; 76705; 80048; 80053; 80061; 81001; 82270; 82805; 82962; 83036; 83605; 83735; 83880; 84100; 84132; 84443; 84484; 85007; 85025; 85027; 85610; 85730; 87040; 87070; 87081; 87086; 87205; 93005; 93306; 93926; 94640; 94660; 97110; 97116; 97163; 97530; C9113; G0378; J1450; J2001; J2405; J2543; J3480

== ENCOUNTER 2023-10-28 06:12 | Inpatient (IN) | payer MEDICARE, MEDICAID ==
[~2023-10-28] VITALS: Ht 157.5 cm; Wt 51.0 kg
[2023-10-28] VITALS (11 sets, daily range): BP systolic 123–134; BP diastolic 57–58; PULSE 70–103; RESP 16–22; TEMP 98.1–98.5; O2SAT 95–100
[~2023-10-28 06:12] MED LIST changes: +ALBUAER3 IN; +AMIO200T33 PO; +METO25TA5 PO; +PANT40T PO; +POTA-180 PO; +ZOFR4T PO
[2023-10-28] MEDS: ALBUTEROL SULF 2.5 MG/0.5ML(0.5%) NEB SOLN NEB ONE (06:45)
[2023-10-28] MEDS: IPRATROPIUM BROM 0.5 MG/2.5ML INH SOL NEB ONE (06:46)
[2023-10-28] MEDS: cefTRIAXone 1GM/50ML D5W 50 ML IV ONE (06:53)
[2023-10-28 07:26] LABS: Base Excess -1.8 mmol/L (-2.0-2.0)
[2023-10-28 07:31] LABS: Basophils # (auto) 0.1 10 ^3/uL (0-0.2); Basophils % (auto) 0.5 % (0.0-2.0); Eosinophils # (auto) 0.5 10 ^3/uL (0-0.8); Hematocrit 29.5 % (36.0-46.0); Hemoglobin 9.4 g/dL (12.2-16.2); Lymphocytes # (auto) 1.2 10 ^3/uL (0.4-5.4); Lymphocytes % (auto) 7.6 % (10.0-50.0); Mean Corpuscular Hemoglobin 28.7 pg (28.0-32.0); Mean Corpuscular Hgb Conc. 31.8 g/dL (32.0-36.0); Mean Corpuscular Volume 90.1 fL (80.0-100.0); Monocytes % (auto) 6.4 % (0.0-12.0); Neutrophils # (auto) 13.2 10 ^3/uL (1.6-8.6); Neutrophils % (auto) 82.5 % (37.0-80.0); Red Blood Cells 3.28 10^6/uL (4.0-5.20); Red Cell Distribution Width 17.2 % (11.8-14.3)
[2023-10-28 07:32] LABS: Chloride 108 mmol/L (98-107); Potassium 3.5 mmol/L (3.5-5.1); Sodium 140 mmol/L (136-145)
[2023-10-28 07:33] LABS: Anion Gap 8 (5-15); Calcium 9.1 mg/dL (8.5-10.1); Carbon Dioxide 24 mmol/L (20-30)
[2023-10-28 07:38] LABS: BUN/Creatinine Ratio 29.3 (10.0-20.0); Blood Urea Nitrogen 17 mg/dL (9-23); Glucose 136 mg/dL (74-106)
[2023-10-28] MEDS: AZITHROMYCIN 500MG/ 250ML 250 ML IV ONE (08:26)
[2023-10-28 08:30] LABS: Urine Bacteria None Seen /hpf (None Seen)
[2023-10-28 08:41] LABS: Urine Amorphous Crystal FEW /hpf (None Seen); Urine Blood Negative /uL (Negative); Urine Color Yellow (Yellow); Urine Hyaline Cast FEW /lpf (0 - 2); Urine Mucus FEW (None Seen); Urine Protein, UAD 1+ (Negative); Urine Specific Gravity 1.022 (1.001-1.035); Urine Urobilinogen Normal (Negative); Urine WBC 2 /hpf (0 - 5); Urine pH 5.5 (5.0-9.0)
[2023-10-28 08:42] LABS: Urine Clarity Clear (Clear)
[2023-10-28] MEDS ORDERED: NITROGLYCERIN 0.4 MG SL TAB SL PRN (11:00)
[2023-10-28] MEDS ORDERED: MORPHINE SULFATE INJ 2 MG/ml SYRG IV PRN (11:00)
[2023-10-28] MEDS ORDERED: ALBUTEROL SULF 2.5 MG/0.5ML(0.5%) NEB SOLN NEB PRN (11:00)
[2023-10-28] MEDS: FUROSEMIDE 20 MG/2 ML VIAL IV ONE (11:23)
[2023-10-28 11:42] LABS: Rapid Influenza A Negative (Negative); Rapid Influenza B Negative (Negative)
[2023-10-28 11:43] LABS: COVID19 ANTIGEN SOFIA FIA NEGATIVE (NEGATIVE)
[2023-10-28 12:39] LABS: Anisocytosis Slight; Hypochromia Slight; Platelet Estimate Adequate
[2023-10-28] MEDS: POTASSIUM EFFERVESENT TAB 25 MEQ PO ONE (12:50)
[2023-10-28] MEDS: ALBUTEROL SULF 2.5 MG/0.5ML(0.5%) NEB SOLN NEB SCH (14:53)
[2023-10-28] MEDS: IPRATROPIUM BROM 0.5 MG/2.5ML INH SOL NEB SCH (14:53)
[2023-10-28] MEDS: METOPROLOL TARTRATE 25 MG TAB PO SCH (21:49)
[2023-10-28] MEDS: AMIODARONE HCL 200 MG TAB PO SCH (21:52)
[2023-10-29] VITALS (44 sets, daily range): BP systolic 64–153; BP diastolic 35–76; PULSE 90–112; RESP 14–26; TEMP 97.5–100.9; O2SAT 91–100
[2023-10-29] MEDS: MELATONIN 5 MG TAB PO ONE (01:50)
[2023-10-29] MEDS: HYDROcodone-ACET 5/325MG TAB PO PRN (04:23)
[2023-10-29 05:53] LABS: Basophils # (auto) 0.1 10 ^3/uL (0-0.2); Basophils % (auto) 0.4 % (0.0-2.0); Eosinophils # (auto) 1.5 10 ^3/uL (0-0.8); Eosinophils % (auto) 10.1 % (0.0-7.0); Hematocrit 27.4 % (36.0-46.0); Lymphocytes # (auto) 1.6 10 ^3/uL (0.4-5.4); Lymphocytes % (auto) 10.3 % (10.0-50.0); Mean Corpuscular Hemoglobin 28.9 pg (28.0-32.0); Mean Corpuscular Hgb Conc. 32.7 g/dL (32.0-36.0); Mean Corpuscular Volume 88.3 fL (80.0-100.0); Monocytes # (auto) 1.1 10 ^3/uL (0-1.3); Monocytes % (auto) 7.4 % (0.0-12.0); Neutrophils # (auto) 10.8 10 ^3/uL (1.6-8.6); Neutrophils % (auto) 71.8 % (37.0-80.0); Red Blood Cells 3.11 10^6/uL (4.0-5.20); Red Cell Distribution Width 16.8 % (11.8-14.3)
[2023-10-29 06:09] LABS: Alkaline Phosphatase 68 U/L (46-116); Anion Gap 8 (5-15); Aspartate Aminotransferase < 8 U/L (13-40); BUN/Creatinine Ratio 29.1 (10.0-20.0); Blood Urea Nitrogen 16 mg/dL (9-23); Calcium 9.3 mg/dL (8.5-10.1); Carbon Dioxide 26 mmol/L (20-30); Chloride 107 mmol/L (98-107); Glucose 115 mg/dL (74-106); Potassium 3.3 mmol/L (3.5-5.1); Sodium 141 mmol/L (136-145)
[2023-10-29 06:10] LABS: Bilirubin, Total 0.5 mg/dL (0.2-1.0); Total Protein 5.4 g/dL (5.7-8.2)
[2023-10-29 06:12] LABS: Albumin 3.4 g/dL (3.2-4.8)
[2023-10-29 06:31] LABS: Alanine Aminotransferase < 9 U/L (7-40)
[2023-10-29] MEDS ORDERED: cefTRIAXone 1GM/50ML D5W 50 ML IV SCH (09:00)
[2023-10-29] MEDS ORDERED: VANCOMYCIN PER PHARMACY 0 MG IV SCH (10:30)
[2023-10-29] MEDS: PANTOPRAZOLE 40 MG TAB PO SCH (10:37)
[2023-10-29] MEDS: ENOXAPARIN SOD 40 MG/0.4 ML SYRINGE SC SCH (10:37)
[2023-10-29] MEDS: AZITHROMYCIN 500MG/ 250ML 250 ML IV SCH ×2 (10:51→12:13)
[2023-10-29] MEDS ORDERED: CEFEPIME 1GM/ 50ML 50 ML IV SCH (11:00)
[2023-10-29] MEDS: VANCOMYCIN 750mg/150ml 150 ML IV ONE (11:09)
[2023-10-29] MEDS: LEVALBUTEROL HCL 1.25 MG/3 ML NEB NEB SCH (12:00)
[2023-10-29] MEDS: IPRATROPIUM BROM 0.5 MG/2.5ML INH SOL NEB SCH (12:15)
[2023-10-29] MEDS: POTASSIUM CHL 20MEQ/100ML 100 ML IV ONE (12:36)
[2023-10-29] MEDS: ONDANSETRON HCL 4 MG/2 ML VIAL IV PRN (13:54)
[2023-10-29] MEDS: ACETAMINOPHEN 325 MG TAB PO PRN (13:54)
[2023-10-29] MEDS: diphenhdrAMINE HCL 50 MG/1 ML VL IV ONE (13:54)
[2023-10-29] MEDS: CEFEPIME 1GM/ 50ML 50 ML IV SCH (15:11)
[2023-10-29] MEDS: ETOMIDATE (2MG/ML) 20ML VIAL IV ONE ×2 (17:45→20:11)
[2023-10-29] MEDS ORDERED: SUCCINYLCHOLINE CHLORIDE 20 MG/ML 10ML VIAL IV ONE (17:45)
[2023-10-29] MEDS: NOREPINEPHRINE 8 MG/250ML KIT 250 ML IV SCH (18:42)
[2023-10-29] MEDS: SUCCINYLCHOLINE CHLORIDE 20 MG/ML 10ML VIAL IV ONE ×2 (18:42→20:11)
[2023-10-29] MEDS: MIDAZOLAM DRIP 50 mg/50mL 50 ML IV SCH (18:42)
[2023-10-29] MEDS: fentaNYL Drip 2500mCg/250mlNS 250 ML IV SCH (18:44)
[2023-10-29 19:04] LABS: Base Excess -3.5 mmol/L (-2.0-2.0)
[2023-10-29] MEDS: MIDAZOLAM DRIP 50 mg/50mL 50 ML IV ONE (20:11)
[2023-10-29] MEDS: FUROSEMIDE 20 MG/2 ML VIAL IV ONE (20:11)
[2023-10-29] MEDS: IPRATROPIUM BROM 0.5 MG/2.5ML INH SOL ONE (20:12)
[2023-10-29] MEDS: fentaNYL Drip 2500mCg/250mlNS 250 ML IV ONE (20:12)
[2023-10-29] MEDS: NOREPINEPHRINE 8 MG/250ML KIT 250 ML IV ONE (20:12)
[2023-10-29] MEDS: ALBUTEROL SULF 2.5 MG/0.5ML(0.5%) NEB SOLN ONE (20:12)
[2023-10-29] MEDS: CLINDAMYCIN 600MG IV 50 ML IV SCH (22:08)
[2023-10-29] MEDS ORDERED: VANCOMYCIN 500 MG in D5W 5% 100 ML IV SCH (23:00)
[2023-10-30] VITALS (112 sets, daily range): BP systolic 90–152; BP diastolic 49–81; PULSE 88–125; RESP 11–98; TEMP 97.7–100; O2SAT 83–100
[2023-10-30 04:12] LABS: Basophils # (auto) 0.1 10 ^3/uL (0-0.2); Basophils % (auto) 0.3 % (0.0-2.0); Eosinophils # (auto) 1.1 10 ^3/uL (0-0.8); Eosinophils % (auto) 5.5 % (0.0-7.0); Hematocrit 28.9 % (36.0-46.0); Hemoglobin 9.2 g/dL (12.2-16.2); Lymphocytes # (auto) 1.7 10 ^3/uL (0.4-5.4); Mean Corpuscular Hemoglobin 28.7 pg (28.0-32.0); Mean Corpuscular Hgb Conc. 31.8 g/dL (32.0-36.0); Mean Corpuscular Volume 90.3 fL (80.0-100.0); Monocytes # (auto) 0.9 10 ^3/uL (0-1.3); Monocytes % (auto) 4.5 % (0.0-12.0); Neutrophils # (auto) 15.4 10 ^3/uL (1.6-8.6); Neutrophils % (auto) 80.7 % (37.0-80.0); Nucleated Red Blood Cells % 0.1 %; Red Cell Distribution Width 16.9 % (11.8-14.3); White Blood Cell 19.2 10^3/uL (4.4-10.8)
[2023-10-30 04:22] LABS: Albumin 3.4 g/dL (3.2-4.8); Alkaline Phosphatase 87 U/L (46-116); Anion Gap 11 (5-15); Aspartate Aminotransferase < 8 U/L (13-40); BUN/Creatinine Ratio 24.5 (10.0-20.0); Calcium 9.5 mg/dL (8.5-10.1); Carbon Dioxide 23 mmol/L (20-30); Chloride 106 mmol/L (98-107); Cholesterol 211 mg/dL (< 200); Glucose 129 mg/dL (74-106); HDL Cholesterol 26 mg/dL (40-59); LDL Cholesterol 151 mg/dL (< 100); Magnesium 1.9 mg/dL (1.6-2.6); Phosphorus 4.5 mg/dL (2.4-5.1); Potassium 3.4 mmol/L (3.5-5.1); Sodium 140 mmol/L (136-145); Total Protein 5.6 g/dL (5.7-8.2); Triglycerides 247 mg/dL (< 150)
[2023-10-30 04:23] LABS: Bilirubin, Total 0.5 mg/dL (0.2-1.0)
[2023-10-30 04:26] LABS: INR 1.08 (0.9-1.15); Partial Thromboplastin Time 25.6 SEC (24.5-34.5); Prothrombin Time 11.4 sec (9.3-11.8)
[2023-10-30 04:30] LABS: CRP High Sensitivity 11.14 mg/dL (<1.0)
[2023-10-30 04:46] LABS: Alanine Aminotransferase 9 U/L (7-40); Blood Urea Nitrogen 26 mg/dL (9-23)
[2023-10-30] MEDS: POTASSIUM CHL 20MEQ/100ML 100 ML IV SCH (06:09)
[2023-10-30 06:36] LABS: % Iron Saturation 10.8 % (15-50)
[2023-10-30 06:49] LABS: Ferritin 524.1 ng/mL (10-291); Folate (Folic Acid) 9.45 ng/mL (>5.38)
[2023-10-30 08:15] LABS: Base Excess -1.6 mmol/L (-2.0-2.0)
[2023-10-30] MEDS: PANTOPRAZOLE 40 MG/10 ML VIAL INJ IV SCH (10:36)
[2023-10-30 13:59] LABS: Amphetamine Screen, Urine Neg (NEGATIVE); Barbiturate Scree,Urine Neg (NEGATIVE); Benzodiazephine Screen, Urine Pos (NEGATIVE); Cocaine Screen, Urine Neg (NEGATIVE); Opiate Scree,Urine Neg (NEGATIVE)
[2023-10-30 14:00] LABS: Cannabinoid Screen, Urine Neg (NEGATIVE); Phencyclidine Screen, Urine Neg (NEGATIVE)
[2023-10-30 15:00] LABS: Body Fluid Polymorphonuclear 35 % (0-25); Body Fluid Red Blood Cells 187.5 CUMM (0-2000); Body Fluid White Blood Cells 168 CUMM (0-200)
[2023-10-30] MEDS: SODIUM CHLORIDE 0.9% 500 ML IV ONE (20:26)
[2023-10-30] MEDS: NOREPINEPHRINE 8 MG/250ML KIT 250 ML IV SCH (20:26)
[2023-10-30] MEDS: ATORVASTATIN 20 MG TAB PO SCH (21:36)
[2023-10-31] VITALS (113 sets, daily range): BP systolic 80–161; BP diastolic 41–87; PULSE 92–132; RESP 18–21; TEMP 96.4–100.4; O2SAT 30–100
[2023-10-31 04:12] LABS: Basophils # (auto) 0.1 10 ^3/uL (0-0.2); Basophils % (auto) 0.5 % (0.0-2.0); Lymphocytes % (auto) 7.3 % (10.0-50.0); Neutrophils % (auto) 77.6 % (37.0-80.0)
[2023-10-31 04:14] LABS: Eosinophils # (auto) 1.7 10 ^3/uL (0-0.8); Eosinophils % (auto) 9.3 % (0.0-7.0); Hematocrit 25.3 % (36.0-46.0); Lymphocytes # (auto) 1.3 10 ^3/uL (0.4-5.4); Mean Corpuscular Hemoglobin 28.7 pg (28.0-32.0); Mean Corpuscular Hgb Conc. 31.8 g/dL (32.0-36.0); Mean Corpuscular Volume 90.2 fL (80.0-100.0); Monocytes % (auto) 5.3 % (0.0-12.0); Neutrophils # (auto) 14.2 10 ^3/uL (1.6-8.6); Red Blood Cells 2.81 10^6/uL (4.0-5.20); Red Cell Distribution Width 16.8 % (11.8-14.3); White Blood Cell 18.4 10^3/uL (4.4-10.8)
[2023-10-31 04:27] LABS: Alkaline Phosphatase 76 U/L (46-116); Anion Gap 8 (5-15); BUN/Creatinine Ratio 29.6 (10.0-20.0); Blood Urea Nitrogen 32 mg/dL (9-23); Carbon Dioxide 23 mmol/L (20-30); Chloride 109 mmol/L (98-107); Glucose 106 mg/dL (74-106); Potassium 3.8 mmol/L (3.5-5.1); Sodium 140 mmol/L (136-145)
[2023-10-31 04:28] LABS: Aspartate Aminotransferase < 8 U/L (13-40); Bilirubin, Total 0.4 mg/dL (0.2-1.0)
[2023-10-31 04:59] LABS: Alanine Aminotransferase < 9 U/L (7-40)
[2023-10-31 06:14] LABS: Base Excess -4.5 mmol/L (-2.0-2.0)
[2023-10-31 12:07] LABS: Protein, Body Fluid 2.4 g/dL (.)
[2023-10-31] MEDS: SODIUM CHLORIDE 0.9% 1,000 ML IV SCH (14:13)
[2023-10-31 14:49] LABS: Body Fluid Polymorphonuclear 10 % (0-25); Body Fluid Red Blood Cells 230 CUMM (0-2000); Body Fluid White Blood Cells 280 CUMM (0-200); Body Fluid pH 8
[2023-10-31] MEDS ORDERED: VANCOMYCIN PER PHARMACY 0 MG IV SCH (17:15)
[2023-10-31] MEDS ORDERED: DOPamine 1600MCG/ML D5W 250 ML IV SCH (19:00)
[2023-10-31] MEDS: VANCOMYCIN 750mg/150ml 150 ML IV SCH (19:48)
[2023-10-31] MEDS: MEROPENEM 1GM IVPB 50 ML IV SCH (21:32)
[2023-11-01] VITALS (111 sets, daily range): BP systolic 82–162; BP diastolic 43–81; PULSE 86–119; RESP 17–30; TEMP 93.6–100.6; O2SAT 98–100
[2023-11-01 04:14] LABS: Basophils % (auto) 0.3 % (0.0-2.0); Eosinophils # (auto) 1.3 10 ^3/uL (0-0.8); Hemoglobin 7.6 g/dL (12.2-16.2)
[2023-11-01 04:18] LABS: Basophils # (auto) 0.1 10 ^3/uL (0-0.2); Eosinophils % (auto) 8.4 % (0.0-7.0); Lymphocytes # (auto) 0.8 10 ^3/uL (0.4-5.4); Lymphocytes % (auto) 5.1 % (10.0-50.0); Mean Corpuscular Hemoglobin 28.7 pg (28.0-32.0); Mean Corpuscular Hgb Conc. 31.6 g/dL (32.0-36.0); Mean Corpuscular Volume 90.8 fL (80.0-100.0); Monocytes # (auto) 0.8 10 ^3/uL (0-1.3); Monocytes % (auto) 4.9 % (0.0-12.0); Neutrophils % (auto) 81.3 % (37.0-80.0); Nucleated Red Blood Cells % 0.1 %; Red Blood Cells 2.64 10^6/uL (4.0-5.20)
[2023-11-01 04:58] LABS: Albumin 2.9 g/dL (3.2-4.8); Alkaline Phosphatase 75 U/L (46-116); Anion Gap 9 (5-15); Aspartate Aminotransferase < 8 U/L (13-40); BUN/Creatinine Ratio 34.8 (10.0-20.0); Blood Urea Nitrogen 31 mg/dL (9-23); Calcium 8.8 mg/dL (8.5-10.1); Carbon Dioxide 22 mmol/L (20-30); Chloride 110 mmol/L (98-107); Glucose 89 mg/dL (74-106); Magnesium 1.8 mg/dL (1.6-2.6); Phosphorus 3.8 mg/dL (2.4-5.1); Potassium 3.5 mmol/L (3.5-5.1); Sodium 141 mmol/L (136-145)
[2023-11-01 04:59] LABS: Bilirubin, Total 0.4 mg/dL (0.2-1.0); Total Protein 4.7 g/dL (5.7-8.2)
[2023-11-01 05:00] LABS: Alanine Aminotransferase < 9 U/L (7-40)
[2023-11-01 07:48] LABS: Base Excess -4.2 mmol/L (-2.0-2.0)
[2023-11-01 12:06] LABS: Albumin, Body Fluid 1.7 g/dL (Not Estab.); Protein, Body Fluid 2.6 g/dL (.)
[2023-11-01] MEDS: ACETAMINOPHEN 650 mg PER 20.3 mL UD ONE (17:00)
[2023-11-01] MEDS: VANCOMYCIN 750mg/150ml 150 ML IV SCH (20:29)
[2023-11-01] MEDS: Jevity 1.2 Cal/Fiber 1 Liter GT SCH (22:14)
[2023-11-02] VITALS (113 sets, daily range): BP systolic 84–173; BP diastolic 41–72; PULSE 74–100; RESP 16–39; TEMP 97.5–99.5; O2SAT 68–100
[2023-11-02] MEDS: ACETAMINOPHEN 650 mg PER 20.3 mL UD GT PRN (01:34)
[2023-11-02 04:28] LABS: Basophils # (auto) 0 10 ^3/uL (0-0.2); Lymphocytes # (auto) 1.1 10 ^3/uL (0.4-5.4); Monocytes # (auto) 1.4 10 ^3/uL (0-1.3); Monocytes % (auto) 8.4 % (0.0-12.0)
[2023-11-02 04:31] LABS: Basophils % (auto) 0.3 % (0.0-2.0); Eosinophils # (auto) 1.2 10 ^3/uL (0-0.8); Eosinophils % (auto) 7.2 % (0.0-7.0); Hematocrit 22.1 % (36.0-46.0); Lymphocytes % (auto) 7.1 % (10.0-50.0); Mean Corpuscular Hemoglobin 28.5 pg (28.0-32.0); Mean Corpuscular Hgb Conc. 31.3 g/dL (32.0-36.0); Mean Corpuscular Volume 91.2 fL (80.0-100.0); Neutrophils # (auto) 12.4 10 ^3/uL (1.6-8.6); Red Blood Cells 2.42 10^6/uL (4.0-5.20); Red Cell Distribution Width 17.3 % (11.8-14.3); White Blood Cell 16.2 10^3/uL (4.4-10.8)
[2023-11-02 04:51] LABS: Alanine Aminotransferase < 9 U/L (7-40); Albumin 2.5 g/dL (3.2-4.8); Alkaline Phosphatase 71 U/L (46-116); Anion Gap 9 (5-15); Aspartate Aminotransferase 9 U/L (13-40); BUN/Creatinine Ratio 38.2 (10.0-20.0); Bilirubin, Total 0.3 mg/dL (0.2-1.0); Blood Urea Nitrogen 26 mg/dL (9-23); Calcium 9.1 mg/dL (8.7-10.4); Carbon Dioxide 20 mmol/L (20-30); Chloride 114 mmol/L (98-107); GFR African American 106 mL/min; GFR Non-African American 88 mL/min; Glucose 87 mg/dL (74-106); Potassium 3.3 mmol/L (3.5-5.1); Sodium 143 mmol/L (136-145); Total Protein 4.3 g/dL (5.7-8.2)
[2023-11-02 05:00] LABS: Hemoglobin 6.9 g/dL (12.2-16.2)
[2023-11-02] MEDS: POTASSIUM CHL 20MEQ/100ML 100 ML IV SCH (08:26)
[2023-11-02 08:38] LABS: INR 1.28 (0.9-1.15); Partial Thromboplastin Time 21.1 SEC (24.5-34.5); Prothrombin Time 13.3 sec (9.3-11.8)
[2023-11-02] MEDS: FUROSEMIDE 20 MG/2 ML VIAL IV ONE (13:30)
[2023-11-02 15:43] LABS: Base Excess -4.7 mmol/L (-2.0-2.0)
[2023-11-02 18:23] LABS: Hematocrit 30.9 % (36.0-46.0); Hemoglobin 9.9 g/dL (12.2-16.2)
[2023-11-02] MEDS: ACETAMINOPHEN IV 1000 MG/100ML (10MG/ML) IV ONE (23:56)
[2023-11-03] VITALS (66 sets, daily range): BP systolic 136–182; BP diastolic 55–82; PULSE 79–119; RESP 16–37; TEMP 97.5–98.9; O2SAT 93–100
[2023-11-03 04:35] LABS: Hematocrit 29.4 % (36.0-46.0); Hemoglobin 9.5 g/dL (12.2-16.2); Mean Corpuscular Hemoglobin 28.6 pg (28.0-32.0); Mean Corpuscular Hgb Conc. 32.4 g/dL (32.0-36.0); Mean Corpuscular Volume 88.4 fL (80.0-100.0); Red Blood Cells 3.32 10^6/uL (4.0-5.20); Red Cell Distribution Width 18.9 % (11.8-14.3); White Blood Cell 20.3 10^3/uL (4.4-10.8)
[2023-11-03 04:36] LABS: Albumin 2.7 g/dL (3.2-4.8); Alkaline Phosphatase 79 U/L (46-116); Anion Gap 10 (5-15); Aspartate Aminotransferase < 8 U/L (13-40); BUN/Creatinine Ratio 30.7 (10.0-20.0); Bilirubin, Total 0.5 mg/dL (0.2-1.0); Blood Urea Nitrogen 23 mg/dL (9-23); Calcium 9.6 mg/dL (8.7-10.4); Carbon Dioxide 21 mmol/L (20-30); Chloride 114 mmol/L (98-107); Glucose 80 mg/dL (74-106); Magnesium 1.9 mg/dL (1.6-2.6); Phosphorus 2.8 mg/dL (2.4-5.1); Potassium 3.5 mmol/L (3.5-5.1); Sodium 145 mmol/L (136-145); Total Protein 4.8 g/dL (5.7-8.2)
[2023-11-03 04:37] LABS: Basophils % (manual) 0 (0.0-2.0); Blast Cells 0; Metamyelocytes % 0; Myelocytes % 0; Promyelocytes % 0; Reactive Lymphocytes 0
[2023-11-03 04:38] LABS: Alanine Aminotransferase < 9 U/L (7-40)
[2023-11-03 05:15] LABS: Band Neutrophils % (manual) 35; Eosinophils % (manual) 8 (0-7); Lymphocytes % (manual) 13 (10.0-50.0); Monocytes % (manual) 8 (0-12); Platelet Estimate Adequate
[2023-11-03] MEDS: hydrALAZINE HCL 20 MG/ML VL IV PRN (20:23)
[2023-11-03] MEDS: ACETAMINOPHEN 325 MG TAB PO PRN (20:30)
[2023-11-04] VITALS (68 sets, daily range): BP systolic 134–192; BP diastolic 56–90; PULSE 96–125; RESP 16–39; TEMP 97.8–98.9; O2SAT 93–100
[2023-11-04 04:16] LABS: Hematocrit 30.9 % (36.0-46.0); Hemoglobin 10.1 g/dL (12.2-16.2); Mean Corpuscular Hemoglobin 28.3 pg (28.0-32.0); Mean Corpuscular Hgb Conc. 32.5 g/dL (32.0-36.0); Red Blood Cells 3.56 10^6/uL (4.0-5.20); Red Cell Distribution Width 17.8 % (11.8-14.3); White Blood Cell 22.8 10^3/uL (4.4-10.8)
[2023-11-04 04:26] LABS: Albumin 2.9 g/dL (3.2-4.8); Alkaline Phosphatase 84 U/L (46-116); Anion Gap 12 (5-15); BUN/Creatinine Ratio 33.3 (10.0-20.0); Blood Urea Nitrogen 21 mg/dL (9-23); Carbon Dioxide 18 mmol/L (20-30); Chloride 116 mmol/L (98-107); Glucose 104 mg/dL (74-106); Magnesium 1.9 mg/dL (1.6-2.6); Potassium 2.9 mmol/L (3.5-5.1); Sodium 146 mmol/L (136-145)
[2023-11-04 04:27] LABS: Aspartate Aminotransferase < 8 U/L (13-40); Bilirubin, Total 0.4 mg/dL (0.2-1.0)
[2023-11-04 04:37] LABS: Alanine Aminotransferase < 9 U/L (7-40)
[2023-11-04 04:49] LABS: Basophils % (manual) 0 (0.0-2.0); Blast Cells 0; Eosinophils % (manual) 0 (0-7); Metamyelocytes % 0; Promyelocytes % 0; Reactive Lymphocytes 0
[2023-11-04 08:38] LABS: Band Neutrophils % (manual) 13; Lymphocytes % (manual) 6 (10.0-50.0); Monocytes % (manual) 11 (0-12); Myelocytes % 1; Platelet Estimate Adequate
[2023-11-04 08:39] LABS: RBC Morphology Normal
[2023-11-04] MEDS: MAGNESIUM SULFATE 1GM/100ML 100 ML IV ONE ×2 (10:30→10:38)
[2023-11-04] MEDS: POTASSIUM CHL 20MEQ/100ML 100 ML IV ONE (10:31)
[2023-11-04] MEDS: POTASSIUM CHL 20MEQ/100ML 100 ML IV SCH (10:38)
[2023-11-04] MEDS: hydrALAZINE HCL 20 MG/ML VL IV PRN (10:40)
[2023-11-04] MEDS: BISACODYL 10 MG RECT SUPP PR ONE ×2 (13:26→13:27)
[2023-11-04 15:55] LABS: Chloride 117 mmol/L (98-107); Potassium 4.1 mmol/L (3.5-5.1); Sodium 147 mmol/L (136-145)
[2023-11-04 15:56] LABS: Anion Gap 12 (5-15); Calcium 10.3 mg/dL (8.7-10.4); Carbon Dioxide 18 mmol/L (20-30)
[2023-11-04 16:01] LABS: BUN/Creatinine Ratio 34.4 (10.0-20.0); Blood Urea Nitrogen 22 mg/dL (9-23); Glucose 107 mg/dL (74-106); Magnesium 2.2 mg/dL (1.6-2.6)
[2023-11-04] MEDS ORDERED: LACTULOSE 20Gm/30ML SOLN PO PRN (19:30)
[2023-11-04] MEDS: FLEET ENEMA(ADULT) 135 ML PR ONE (19:34)
[2023-11-04 20:06] LABS: Base Excess -4.9 mmol/L (-2.0-2.0)
[2023-11-04] MEDS: METOCLOPRAMIDE HCL 5MG/ml INJ 2ml VIAL IV PRN (21:59)
[2023-11-05] VITALS (57 sets, daily range): BP systolic 142–181; BP diastolic 49–85; PULSE 92–120; RESP 13–34; TEMP 97.6–98.1; O2SAT 92–100
[2023-11-05 04:06] LABS: Hematocrit 32.7 % (36.0-46.0); Hemoglobin 10.6 g/dL (12.2-16.2); Mean Corpuscular Hemoglobin 28.3 pg (28.0-32.0); Mean Corpuscular Hgb Conc. 32.3 g/dL (32.0-36.0); Mean Corpuscular Volume 87.8 fL (80.0-100.0); Red Blood Cells 3.73 10^6/uL (4.0-5.20); Red Cell Distribution Width 18.1 % (11.8-14.3); White Blood Cell 27.9 10^3/uL (4.4-10.8)
[2023-11-05 04:13] LABS: Basophils % (manual) 0 (0.0-2.0); Blast Cells 0; Eosinophils % (manual) 0 (0-7); Metamyelocytes % 0; Promyelocytes % 0; Reactive Lymphocytes 0
[2023-11-05 04:26] LABS: Albumin 3.1 g/dL (3.2-4.8); Alkaline Phosphatase 83 U/L (46-116); Anion Gap 12 (5-15); Aspartate Aminotransferase < 8 U/L (13-40); BUN/Creatinine Ratio 34.4 (10.0-20.0); Blood Urea Nitrogen 21 mg/dL (9-23); Calcium 10.3 mg/dL (8.7-10.4); Carbon Dioxide 19 mmol/L (20-30); Chloride 117 mmol/L (98-107); Glucose 105 mg/dL (74-106); Magnesium 2.1 mg/dL (1.6-2.6); Phosphorus 1.7 mg/dL (2.4-5.1); Potassium 3.7 mmol/L (3.5-5.1); Sodium 148 mmol/L (136-145)
[2023-11-05 04:27] LABS: Bilirubin, Total 0.4 mg/dL (0.2-1.0); Total Protein 5.3 g/dL (5.7-8.2)
[2023-11-05 04:40] LABS: Alanine Aminotransferase < 9 U/L (7-40)
[2023-11-05 05:29] LABS: Band Neutrophils % (manual) 12; Lymphocytes % (manual) 5 (10.0-50.0); Monocytes % (manual) 6 (0-12); Myelocytes % 1
[2023-11-05 05:30] LABS: Anisocytosis Slight; Platelet Estimate Adequate; Target Cell FEW
[2023-11-05] MEDS: POTASSIUM CHL 20MEQ/100ML 100 ML IV ONE (07:46)
[2023-11-05] MEDS: FAMOTIDINE (10MG/ML) 2ML VL IV SCH (07:46)
[2023-11-05] MEDS: FUROSEMIDE 40 MG/4 ML VIAL IV ONE (07:46)
[2023-11-05] MEDS: POTASSIUM PHOSPHATE 22 MEQ in SODIUM CHL 0.9% 100 ML IV ONE (07:49)
[2023-11-05] MEDS: SPIRONOLACTONE 25 MG TAB PO SCH (09:08)
[2023-11-05] MEDS: METOPROLOL TARTRATE 1MG/1ML-5ML VIAL IV SCH (09:17)
[2023-11-05] MEDS: SACUBITRIL-VALSARTAN 24mg/26mg TAB PO SCH (10:00)
[2023-11-05] MEDS: LABETALOL HCL 5 MG/ML 4ML SYRINGE IV PRN (14:25)
[2023-11-05] MEDS: FUROSEMIDE 20 MG/2 ML VIAL IV SCH (17:32)
[2023-11-05] MEDS: D5W 5% 1,000 ML IV SCH (19:54)
[2023-11-06] VITALS (38 sets, daily range): BP systolic 123–167; BP diastolic 56–85; PULSE 89–117; RESP 12–33; TEMP 97–98.2; O2SAT 91–100
[2023-11-06 04:21] LABS: Hematocrit 34.4 % (36.0-46.0); Hemoglobin 11.1 g/dL (12.2-16.2); Mean Corpuscular Hemoglobin 28.5 pg (28.0-32.0); Mean Corpuscular Hgb Conc. 32.1 g/dL (32.0-36.0); Mean Corpuscular Volume 88.6 fL (80.0-100.0); Red Blood Cells 3.89 10^6/uL (4.0-5.20); Red Cell Distribution Width 18.3 % (11.8-14.3)
[2023-11-06 04:26] LABS: Basophils % (manual) 0 (0.0-2.0); Blast Cells 0; Myelocytes % 0; Promyelocytes % 0; Reactive Lymphocytes 0
[2023-11-06 04:35] LABS: Anion Gap 13 (5-15); Carbon Dioxide 20 mmol/L (20-30); Chloride 113 mmol/L (98-107); Potassium 2.8 mmol/L (3.5-5.1); Sodium 146 mmol/L (136-145)
[2023-11-06 04:36] LABS: Calcium 10.1 mg/dL (8.7-10.4)
[2023-11-06 04:41] LABS: BUN/Creatinine Ratio 31.6 (10.0-20.0); Blood Urea Nitrogen 18 mg/dL (9-23); Glucose 136 mg/dL (74-106); Magnesium 1.9 mg/dL (1.6-2.6)
[2023-11-06 04:43] LABS: Phosphorus 2.1 mg/dL (2.4-5.1)
[2023-11-06] MEDS: POTASSIUM CHL 20MEQ/100ML 100 ML IV ONE (05:51)
[2023-11-06] MEDS ORDERED: POTASSIUM PHOSPHATE 22 MEQ in SODIUM CHL 0.9% 100 ML IV ONE ×2 (07:00→07:30)
[2023-11-06 08:29] LABS: Band Neutrophils % (manual) 8; Eosinophils % (manual) 3 (0-7); Lymphocytes % (manual) 5 (10.0-50.0); Metamyelocytes % 1; Monocytes % (manual) 6 (0-12); Platelet Estimate Adequate
[2023-11-06] MEDS: POTASSIUM CHL 20MEQ/100ML 100 ML IV SCH ×2 (08:39→17:17)
[2023-11-06] MEDS: ENOXAPARIN SOD 30 MG/0.3 ML SYRINGE SC SCH (09:18)
[2023-11-06] MEDS ORDERED: PROMETHAZINE HCL 6.25 MG/5 ML ORAL SYRUP PO PRN (13:30)
[2023-11-06] MEDS: MAGNESIUM SULFATE 1GM/100ML 100 ML IV ONE (17:07)
[2023-11-07] VITALS (35 sets, daily range): BP systolic 125–163; BP diastolic 59–87; PULSE 87–115; RESP 16–30; TEMP 97.2–98.2; O2SAT 91–100
[2023-11-07 05:48] LABS: Hematocrit 34.8 % (36.0-46.0); Hemoglobin 11.1 g/dL (12.2-16.2); Mean Corpuscular Hemoglobin 28.2 pg (28.0-32.0); Mean Corpuscular Volume 88.2 fL (80.0-100.0); Red Blood Cells 3.94 10^6/uL (4.0-5.20); Red Cell Distribution Width 18.1 % (11.8-14.3)
[2023-11-07 05:51] LABS: Anion Gap 9 (5-15); Carbon Dioxide 26 mmol/L (20-30); Chloride 108 mmol/L (98-107); Potassium 3.5 mmol/L (3.5-5.1); Sodium 143 mmol/L (136-145)
[2023-11-07 05:53] LABS: Calcium 9.8 mg/dL (8.7-10.4)
[2023-11-07 05:57] LABS: BUN/Creatinine Ratio 37.5 (10.0-20.0); Blood Urea Nitrogen 21 mg/dL (9-23); Glucose 125 mg/dL (74-106)
[2023-11-07 06:00] LABS: Phosphorus 2.3 mg/dL (2.4-5.1)
[2023-11-07 06:07] LABS: Basophils % (manual) 0 (0.0-2.0); Blast Cells 0; Metamyelocytes % 0; Myelocytes % 0; Promyelocytes % 0; Reactive Lymphocytes 0; White Blood Cell 33.8 10^3/uL (4.4-10.8)
[2023-11-07] MEDS: POTASSIUM CHL 20MEQ/100ML 100 ML IV SCH (06:57)
[2023-11-07] MEDS ORDERED: MORPHINE SULFATE INJ 2 MG/ml SYRG IV PRN (07:45)
[2023-11-07] MEDS: KETOROLAC TROMETH 30 MG/ML 1ML VIAL IV PRN (08:07)
[2023-11-07 08:09] LABS: Band Neutrophils % (manual) 16; Eosinophils % (manual) 5 (0-7); Lymphocytes % (manual) 8 (10.0-50.0); Monocytes % (manual) 4 (0-12)
[2023-11-07 08:10] LABS: Platelet Estimate Adequate
[2023-11-07] MEDS: MAGNESIUM SULFATE 1GM/100ML 100 ML IV ONE (08:19)
[2023-11-07] MEDS: POTASSIUM PHOSPHATE 22 MEQ in SODIUM CHL 0.9% 100 ML IV ONE (10:59)
[2023-11-07] MEDS: FUROSEMIDE 40 MG/4 ML VIAL IV SCH (17:40)
[2023-11-08] VITALS (17 sets, daily range): BP systolic 129–150; BP diastolic 57–74; PULSE 92–118; RESP 14–21; TEMP 97.4–98.2; O2SAT 90–100
[2023-11-08 06:18] LABS: Calcium 9.7 mg/dL (8.5-10.1); Chloride 105 mmol/L (98-107); Potassium 3.5 mmol/L (3.5-5.1); Sodium 141 mmol/L (136-145)
[2023-11-08 06:19] LABS: Anion Gap 6 (5-15); Carbon Dioxide 30 mmol/L (20-30)
[2023-11-08 06:24] LABS: BUN/Creatinine Ratio 37.5 (10.0-20.0); Blood Urea Nitrogen 24 mg/dL (9-23); Glucose 126 mg/dL (74-106)
[2023-11-08 06:25] LABS: Magnesium 2.2 mg/dL (1.6-2.6)
[2023-11-08 06:26] LABS: Phosphorus 3.3 mg/dL (2.4-5.1)
[2023-11-08 06:30] LABS: Hematocrit 34.6 % (36.0-46.0); Hemoglobin 11.3 g/dL (12.2-16.2); Mean Corpuscular Hemoglobin 28.7 pg (28.0-32.0); Mean Corpuscular Hgb Conc. 32.7 g/dL (32.0-36.0); Mean Corpuscular Volume 87.9 fL (80.0-100.0); Red Blood Cells 3.94 10^6/uL (4.0-5.20); Red Cell Distribution Width 18.4 % (11.8-14.3)
[2023-11-08 06:43] LABS: White Blood Cell 32.8 10^3/uL (4.4-10.8)
[2023-11-08 06:45] LABS: Band Neutrophils % (manual) 0; Basophils % (manual) 0 (0.0-2.0); Blast Cells 0; Metamyelocytes % 0; Myelocytes % 0; Promyelocytes % 0; Reactive Lymphocytes 0
[2023-11-08] MEDS ORDERED: traMADol HCL 50 MG TAB PO PRN (07:30)
[2023-11-08 07:38] LABS: Eosinophils % (manual) 3 (0-7); Lymphocytes % (manual) 3 (10.0-50.0); Monocytes % (manual) 8 (0-12); Smudge Cells 2 /100 WBC
[2023-11-08 07:39] LABS: Platelet Estimate Adequate
[2023-11-08] MEDS: POTASSIUM CHL 20MEQ/100ML 100 ML IV SCH (08:17)
[2023-11-08] MEDS: METOCLOPRAMIDE HCL 5MG/ml INJ 2ml VIAL IV SCH (12:41)
[2023-11-09] VITALS (15 sets, daily range): BP systolic 121–135; BP diastolic 56–69; PULSE 80–112; RESP 14–20; TEMP 97.3–98; O2SAT 91–99
[2023-11-09 06:04] LABS: Alanine Aminotransferase < 9 U/L (7-40); Albumin 2.9 g/dL (3.2-4.8); Alkaline Phosphatase 96 U/L (46-116); Anion Gap 10 (5-15); Aspartate Aminotransferase 8 U/L (13-40); BUN/Creatinine Ratio 41.3 (10.0-20.0); Bilirubin, Total 0.7 mg/dL (0.2-1.0); Blood Urea Nitrogen 26 mg/dL (9-23); Calcium 9.6 mg/dL (8.7-10.4); Carbon Dioxide 28 mmol/L (20-30); Chloride 104 mmol/L (98-107); Glucose 108 mg/dL (74-106); Phosphorus 3.1 mg/dL (2.4-5.1); Potassium 3.2 mmol/L (3.5-5.1); Sodium 142 mmol/L (136-145)
[2023-11-09 08:02] LABS: Hematocrit 34.7 % (36.0-46.0); Hemoglobin 11.2 g/dL (12.2-16.2); Mean Corpuscular Hemoglobin 28.7 pg (28.0-32.0); Mean Corpuscular Hgb Conc. 32.3 g/dL (32.0-36.0); Red Cell Distribution Width 17.7 % (11.8-14.3)
[2023-11-09] MEDS: POTASSIUM CHL 20MEQ/100ML 100 ML IV SCH (08:02)
[2023-11-09 08:05] LABS: Basophils % (manual) 0 (0.0-2.0); Blast Cells 0; Myelocytes % 0; Promyelocytes % 0; Reactive Lymphocytes 0
[2023-11-09 08:27] LABS: Band Neutrophils % (manual) 16; Eosinophils % (manual) 6 (0-7); Lymphocytes % (manual) 7 (10.0-50.0); Metamyelocytes % 1; Monocytes % (manual) 4 (0-12)
[2023-11-09 08:29] LABS: Anisocytosis Slight; Platelet Estimate Adequate
[2023-11-09] MEDS: METOPROLOL TARTRATE 50 MG TAB PO SCH (11:08)
[2023-11-09] MEDS: FUROSEMIDE 20 MG/2 ML VIAL IV SCH (19:07)
[2023-11-09] MEDS: POTASSIUM CHL 20 Meq TABLET PO ONE (19:44)
[2023-11-10] VITALS (19 sets, daily range): BP systolic 125–138; BP diastolic 56–69; PULSE 81–102; RESP 15–18; TEMP 97.6–99.4; O2SAT 93–100
[2023-11-10 06:48] LABS: Hemoglobin 11.6 g/dL (12.2-16.2); Red Cell Distribution Width 17.9 % (11.8-14.3)
[2023-11-10 06:50] LABS: Hematocrit 35.1 % (36.0-46.0); Mean Corpuscular Hemoglobin 28.8 pg (28.0-32.0); Mean Corpuscular Hgb Conc. 32.9 g/dL (32.0-36.0); Mean Corpuscular Volume 87.7 fL (80.0-100.0); Red Blood Cells 4.01 10^6/uL (4.0-5.20)
[2023-11-10 06:55] LABS: White Blood Cell 31.2 10^3/uL (4.4-10.8)
[2023-11-10 06:57] LABS: Basophils % (manual) 0 (0.0-2.0); Blast Cells 0; Metamyelocytes % 0; Myelocytes % 0; Promyelocytes % 0; Reactive Lymphocytes 0
[2023-11-10 07:06] LABS: Anion Gap 6 (5-15); Carbon Dioxide 29 mmol/L (20-30); Chloride 104 mmol/L (98-107); Potassium 3.6 mmol/L (3.5-5.1); Sodium 139 mmol/L (136-145)
[2023-11-10 07:07] LABS: Calcium 9.8 mg/dL (8.7-10.4)
[2023-11-10 07:12] LABS: BUN/Creatinine Ratio 39.7 (10.0-20.0); Blood Urea Nitrogen 27 mg/dL (9-23); Glucose 104 mg/dL (74-106)
[2023-11-10 07:14] LABS: Phosphorus 2.9 mg/dL (2.4-5.1)
[2023-11-10 07:26] LABS: Band Neutrophils % (manual) 11; Eosinophils % (manual) 8 (0-7); Lymphocytes % (manual) 8 (10.0-50.0); Monocytes % (manual) 7 (0-12)
[2023-11-10 07:27] LABS: Anisocytosis Slight; Platelet Estimate Adequate
[2023-11-10] MEDS: POTASSIUM CHL 20MEQ/100ML 100 ML IV SCH (12:01)
[2023-11-11] VITALS (14 sets, daily range): BP systolic 109–157; BP diastolic 48–109; PULSE 75–91; RESP 16–18; TEMP 97.2–98.3; O2SAT 92–100
[2023-11-11 08:36] LABS: Basophils # (auto) 0.1 10 ^3/uL (0-0.2); Basophils % (auto) 0.2 % (0.0-2.0); Eosinophils % (auto) 10.2 % (0.0-7.0); Hematocrit 34.8 % (36.0-46.0); Hemoglobin 11.1 g/dL (12.2-16.2); Lymphocytes # (auto) 1.5 10 ^3/uL (0.4-5.4); Lymphocytes % (auto) 5.1 % (10.0-50.0); Mean Corpuscular Hemoglobin 28.1 pg (28.0-32.0); Mean Corpuscular Hgb Conc. 31.9 g/dL (32.0-36.0); Mean Corpuscular Volume 88.1 fL (80.0-100.0); Monocytes # (auto) 2.4 10 ^3/uL (0-1.3); Neutrophils # (auto) 22.7 10 ^3/uL (1.6-8.6); Neutrophils % (auto) 76.5 % (37.0-80.0); Nucleated Red Blood Cells % 0.1 %; Red Blood Cells 3.95 10^6/uL (4.0-5.20); Red Cell Distribution Width 18.2 % (11.8-14.3); White Blood Cell 29.6 10^3/uL (4.4-10.8)
[2023-11-11 08:59] LABS: Chloride 105 mmol/L (98-107); Potassium 3.5 mmol/L (3.5-5.1); Sodium 140 mmol/L (136-145)
[2023-11-11 09:00] LABS: Anion Gap 8 (5-15); Carbon Dioxide 27 mmol/L (20-30)
[2023-11-11 09:01] LABS: Calcium 10.1 mg/dL (8.7-10.4)
[2023-11-11 09:05] LABS: Glucose 104 mg/dL (74-106)
[2023-11-11 09:06] LABS: BUN/Creatinine Ratio 42.9 (10.0-20.0); Blood Urea Nitrogen 30 mg/dL (9-23)
[2023-11-11 09:08] LABS: Phosphorus 3.2 mg/dL (2.4-5.1)
[2023-11-11 09:34] LABS: Magnesium 1.8 mg/dL (1.6-2.6)
[2023-11-12] VITALS (12 sets, daily range): BP systolic 110–131; BP diastolic 54–70; PULSE 67–87; RESP 15–18; TEMP 97.5–98.1; O2SAT 93–100
[2023-11-12] MEDS: FUROSEMIDE 40 MG TAB PO SCH (10:00)
[2023-11-12] MEDS: POTASSIUM EFFERVESENT TAB 25 MEQ PO ONE ×2 (10:26→12:00)
[2023-11-12] MEDS: MAGNESIUM OXIDE 400 MG TAB PO ONE (10:26)
[2023-11-12 10:30] LABS: Hematocrit 34.7 % (36.0-46.0); Hemoglobin 11.4 g/dL (12.2-16.2); Mean Corpuscular Hemoglobin 29.1 pg (28.0-32.0); Mean Corpuscular Hgb Conc. 32.8 g/dL (32.0-36.0); Mean Corpuscular Volume 88.7 fL (80.0-100.0); Red Blood Cells 3.91 10^6/uL (4.0-5.20); White Blood Cell 28.7 10^3/uL (4.4-10.8)
[2023-11-12 10:36] LABS: Basophils % (manual) 0 (0.0-2.0); Blast Cells 0; Metamyelocytes % 0; Myelocytes % 0; Promyelocytes % 0; Reactive Lymphocytes 0
[2023-11-12 11:45] LABS: Chloride 104 mmol/L (98-107); Potassium 3.2 mmol/L (3.5-5.1); Sodium 137 mmol/L (136-145)
[2023-11-12 11:46] LABS: Anion Gap 9 (5-15); Carbon Dioxide 24 mmol/L (20-30)
[2023-11-12 11:47] LABS: Calcium 10.2 mg/dL (8.7-10.4)
[2023-11-12 11:51] LABS: Glucose 104 mg/dL (74-106)
[2023-11-12 11:52] LABS: BUN/Creatinine Ratio 45.6 (10.0-20.0); Blood Urea Nitrogen 26 mg/dL (9-23); Magnesium 1.9 mg/dL (1.6-2.6)
[2023-11-12 11:54] LABS: Phosphorus 3.4 mg/dL (2.4-5.1)
[2023-11-12 12:41] LABS: Anisocytosis Slight; Band Neutrophils % (manual) 8; Eosinophils % (manual) 10 (0-7); Lymphocytes % (manual) 5 (10.0-50.0); Monocytes % (manual) 9 (0-12); Platelet Estimate Adequate
== END 2023-11-12 19:20 | disposition hospice, home (50) | DRG 720 ==
LOC: EDUNIT# 06:12 → EDBD 06:12 → ER 06:20 → EEVIPCON 06:20 → TELE 11:01 → TELE-EAST 17:11 → ICU WEST 10-29 16:48 → DOU IN ICU 11-06 02:56 → TELE-CENTR 11-07 18:32
PROVIDERS: ADMIT Internal Medicine; ATTEND Internal Medicine
PROC: 5A1945Z Respiratory Ventilation, 24-96 Consecutive Hours (ICD-10-PCS; principal; 2023-10-29)
PROC: 0BH17EZ Insertion of Endotracheal Airway into Trachea, Via Natural or Artificial Opening (ICD-10-PCS; 2023-10-29)
PROC: 02HV33Z Insertion of Infusion Device into Superior Vena Cava, Percutaneous Approach (ICD-10-PCS; 2023-10-29)
PROC: 0W993ZZ Drainage of Right Pleural Cavity, Percutaneous Approach (ICD-10-PCS; 2023-10-30)
PROC: 0W9B3ZZ Drainage of Left Pleural Cavity, Percutaneous Approach (ICD-10-PCS; 2023-10-31)
PROC: 30233N1 Transfusion of Nonautologous Red Blood Cells into Peripheral Vein, Percutaneous Approach (ICD-10-PCS; 2023-11-02)
PROC: 05HA33Z Insertion of Infusion Device into Left Brachial Vein, Percutaneous Approach (ICD-10-PCS; 2023-11-07)
PROC: B54NZZA Ultrasonography of Left Upper Extremity Veins, Guidance (ICD-10-PCS; 2023-11-07)
DX: A41.9 Sepsis, unspecified organism (principal); J96.01 Acute respiratory failure with hypoxia; J69.0 Pneumonitis due to inhalation of food and vomit; R65.21 Severe sepsis with septic shock; G93.41 Metabolic encephalopathy; I50.23 Acute on chronic systolic (congestive) heart failure; G93.1 Anoxic brain damage, not elsewhere classified; J15.69 Pneumonia due to other Gram-negative bacteria; J15.9 Unspecified bacterial pneumonia; I47.21 Torsades de pointes; I42.9 Cardiomyopathy, unspecified; Z51.5 Encounter for palliative care; I21.A1 Myocardial infarction type 2; D64.9 Anemia, unspecified; F41.9 Anxiety disorder, unspecified; E78.5 Hyperlipidemia, unspecified; I48.0 Paroxysmal atrial fibrillation; I11.0 Hypertensive heart disease with heart failure; G89.29 Other chronic pain; J98.4 Other disorders of lung; E87.6 Hypokalemia; E83.42 Hypomagnesemia; J91.8 Pleural effusion in other conditions classified elsewhere; Z79.01 Long term (current) use of anticoagulants; Z82.3 Family history of stroke; Z90.710 Acquired absence of both cervix and uterus
CPT/HCPCS: 32555; 36415; 36600; 70450; 71045; 71250; 72192; 76604; 76942; 80048; 80053; 80061; 80069; 80202; 80307; 81001; 82270; 82306; 82565; 82607; 82728; 82746; 82805; 82962; 83010; 83540; 83550; 83605; 83615; 83735; 83880; 83986; 84100; 84132; 84443; 84484; 84560; 85007; 85014; 85018; 85025; 85027; 85045; 85379; 85384; 85610; 85730; 86141; 86850; 86900; 86901; 86920; 87040; 87070; 87081; 87086; 87205; 87278; 87426; 87804; 89051; 92507; 93005; 93306; 93970; 94002; 94003; 94640; 97110; 97116; 97163; 97530; 99291; G0378; J0131; J0330; J1885; J2185; J2405; J2470; J3480; J3490; J7060